=== PATIENT | female | born 1950 | race American Indian/Alaskan Native ===

== ENCOUNTER 2016-12-25 00:37 | Inpatient (IN) | payer MEDICARE, OTHER ==
--- NOTE | 2016-12-25 02:03 | Emergency Department Report ---
HPI - General Chief Complaint: Dyspnea/Respdistress Time Seen by Provider: 12/25/16 01:49 - HPI HPI: Room 7 The patient is a 58-year-old female presenting with a chief complaint of shortness of breath. The patient states this evening she developed shortness of breath. The patient says she used her MDI but it did not help. Patient states she has had a cough productive of green sputum for the past 2 days. Patient denies any history of fever or rhinorrhea. The patient is not on oxygen at home was placed on O2 in the ED states that she now feels "pretty good." Patient denies any other pain except for her chronic pain in her left upper extremity for which she receives disability Location: Lungs, see above Duration: One night Quality: Shortness of breath Severity: Moderate Modifying factors: [see above] Context: [see above] Mode of transportation: [not driving] ED Past Medical Hx - Past Medical History Previous Medical History?: Yes Hx Hypertension: Yes Hx COPD: Yes - Surgical History Additional Surgical History: Partial hysterectomy, herniorrhaphy, hemorrhoidectomy - Family History Family history: no significant - Social History Smoking Status: Current Some Day Smoker (1/2 pack per day) Substance Use Type: None (denies illicit drug use) ED Review of Systems ROS: Stated complaint: DERIK, HTN Other details as noted in HPI Comment: All other systems reviewed and negative Constitutional: denies: chills, fever Eyes: denies: eye pain, eye discharge, vision change ENT: denies: ear pain, throat pain Respiratory: cough, shortness of breath Cardiovascular: denies: chest pain, palpitations Endocrine: no symptoms reported Gastrointestinal: denies: abdominal pain, nausea, diarrhea Genitourinary: denies: urgency, dysuria, discharge Musculoskeletal: denies: back pain, joint swelling, arthralgia Skin: denies: rash, lesions Neurological: denies: headache, weakness, paresthesias Psychiatric: denies: anxiety, depression Hematological/Lymphatic: denies: easy bleeding, easy bruising Physical Exam - Physical Exam Vital Signs: Vital Signs 12/25/16 12/25/16 01:00 01:04 Temperature 99 F Pulse Rate 88 Respiratory 18 20 Rate Blood Pressure 153/82 O2 Sat by Pulse 100 Oximetry Physical Exam: GENERAL: The patient is well-developed well-nourished female lying on stretcher not appear to be in acute distress. [] HEENT: Normocephalic. Atraumatic. Extraocular motions are intact. Patient has moist mucous membranes. NECK: Supple. Trachea midline CHEST/LUNGS: Clear to auscultation. There is no respiratory distress noted. HEART/CARDIOVASCULAR: Regular. There is no tachycardia. There is no gallop rub or murmur. ABDOMEN: Abdomen is soft, nontender. Patient has normal bowel sounds. There is no abdominal distention. SKIN: There is no rash. There is no edema. There is no diaphoresis. NEURO: The patient is awake, alert, and oriented. The patient is cooperative. The patient has normal speech MUSCULOSKELETAL: There is no evidence of acute injury. ED Course Vital Signs 12/25/16 12/25/16 01:00 01:04 Temperature 99 F Pulse Rate 88 Respiratory 18 20 Rate Blood Pressure 153/82 O2 Sat by Pulse 100 Oximetry ED Medical Decision Making - Lab Data Result diagrams: 12/25/16 02:38 12/25/16 02:38 Laboratory Tests 12/25/16 12/25/16 12/25/16 02:38 02:38 02:38 WBC 7.2 RBC 4.40 Hgb 13.1 Hct 39.0 MCV 89 MCH 30 MCHC 34 RDW 14.9 Plt Count 223 Lymph % (Auto) 13.5 [place] % (Auto) 6.0 Eos % (Auto) 0.2 Baso % (Auto) 0.2 Lymph # 1.0 L [place] # 0.4 Eos # 0.0 Baso # 0.0 Seg Neutrophils % 80.1 H Seg Neutrophils # 5.8 PT 12.3 INR 0.92 APTT 27.9 POC ABG pH POC ABG pCO2 POC ABG pO2 POC ABG HCO3 POC ABG Total CO2 POC ABG O2 Sat POC ABG Base Excess FiO2 Sodium 142 Potassium 3.7 Chloride 102.5 Carbon Dioxide 25 Anion Gap 18 BUN 17 Creatinine 0.7 Estimated GFR > 60 BUN/Creatinine Ratio 24.28 Glucose 126 H Calcium 9.0 Total Creatine Kinase 297 H CK-MB (CK-2) 6.4 H CK-MB (CK-2) Rel Index 2.1 Troponin T 0.141 H* NT-Pro-B Natriuret Pep 138.4 12/25/16 02:39 WBC RBC Hgb Hct MCV MCH MCHC RDW Plt Count Lymph % (Auto) [place] % (Auto) Eos % (Auto) Baso % (Auto) Lymph # [place] # Eos # Baso # Seg Neutrophils % Seg Neutrophils # PT INR APTT POC ABG pH 7.376 POC ABG pCO2 43.3 POC ABG pO2 50 L POC ABG HCO3 25.3 POC ABG Total CO2 27 POC ABG O2 Sat 84 POC ABG Base Excess 0 FiO2 21 Sodium Potassium Chloride Carbon Dioxide Anion Gap BUN Creatinine Estimated GFR BUN/Creatinine Ratio Glucose Calcium Total Creatine Kinase CK-MB (CK-2) CK-MB (CK-2) Rel Index Troponin T NT-Pro-B Natriuret Pep - EKG Data -: EKG Interpreted by Me EKG shows normal: sinus rhythm Rate: normal - EKG Data When compared to previous EKG there are: previous EKG unavailable Interpretation: nonspecific ST-T wave maria c - Radiology Data Radiology results: image reviewed (chest x-ray) interpreted by me: Chest x-ray-no focal infiltrates, no pneumothorax - Differential Diagnosis COPD exacerbation, pneumonia, acute bronchitis, CHF Critical care attestation.: If time is entered above; I have spent that time in minutes in the direct care of this critically ill patient, excluding procedure time. ED Disposition Clinical Impression: Shortness of breath, Hypoxia, Elevated troponin Disposition: DC-09 OP ADMIT IP TO THIS HOSP Is pt being admited?: Yes Does the pt Need Aspirin: Yes Condition: Fair Referrals: PRIMARY CARE, [Primary Care Provider] - 3-5 Days Time of Disposition: 04:02 (hospitalist paged)
[2016-12-25 02:49] LABS: ISTAT Base Excess 0; ISTAT DEVICE 0; ISTAT HCO3 25.3; ISTAT PCO2 43.3 (35-45); ISTAT PH 7.376 (7.35-7.45); ISTAT PO2 50 (80-105); ISTAT SO2 84; ISTAT TCO2 27
[2016-12-25] MEDS ORDERED: MOTRIN PO ONE (03:02)
[2016-12-25 03:20] LABS: Creatine Kinase MB 6.4 ng/mL (0.0-4.0)
[2016-12-25 03:21] LABS: Anion Gap 18 mmol/L; BUN/Creatinine Ratio 24.28; Blood Urea Nitrogen 17 mg/dL (7-17); Carbon Dioxide 25 mmol/L (22-30); Chloride 102.5 mmol/L (98-107); Creatine Kinase 297 units/L (30-135); Glucose 126 mg/dL (65-100); Potassium 3.7 mmol/L (3.6-5.0); Sodium 142 mmol/L (137-145)
[2016-12-25 03:26] LABS: Basophils % (Auto) 0.2 % (0.0-1.8); Eosinophils % (Auto) 0.2 % (0.0-4.3); Hemoglobin 13.1 gm/dl (10.1-14.3); Mean Corpuscular HGB Conc 34 % (30-34); Mean Corpuscular Hemoglobin 30 pg (28-32); Mean Corpuscular Volume 89 fl (79-97); Platelet Count 223 K/mm3 (140-440); Red Cell Distribution Width 14.9 % (13.2-15.2); White Blood Count 7.2 K/mm3 (4.5-11.0)
[2016-12-25 03:33] LABS: INR 0.92 (0.87-1.13)
[2016-12-25 03:34] LABS: Partial Thromboplastin Time 27.9 Sec. (24.2-36.6)
[2016-12-25] MEDS ORDERED: ASPIRIN PO ONE (04:00)
[2016-12-25 04:12] LABS: Cholesterol 168 mg/dL (50-199); HDL Cholesterol 65 mg/dL (40-59); LDL Cholesterol,Direct 82 mg/dL (50-130); Triglycerides 106 mg/dL (2-149)
[2016-12-25 07:17] LABS: Creatine Kinase MB 7.5 ng/mL (0.0-4.0)
--- NOTE | 2016-12-25 07:37 | XRay Report ---
AP CHEST: HISTORY: Shortness of breath No comparison. The lungs are hyperinflated suggesting moderate emphysematous changes. No infiltrate, pleural effusion or pneumothorax. Heart and mediastinal structures are within normal limits. Normal bony thorax. IMPRESSION: Emphysematous changes. No acute process.
--- NOTE | 2016-12-25 08:36 | Admit Criteria Form ---
Admission Criteria Documentation: COPD Clinical Indications for Admission to Inpatient Care ([place]/ check or initial the applicable condition/criteria) Admission is indicated for ANY ONE of the following (1)(2)(3): [ ]I. Acute exacerbation by high-risk comorbidity(e.g., pneumonia, dysrhythmia, heart failure, pleural effusion, pneumothorax) or severe underlying COPD (eg, baseline FEV1 less than 50% predicted) [X ]II. Inpatient admission required[A] rather than observation care (see Chronic Obstructive Pulmonary Disease: Observation Care) because of ANY ONE of the following: [X ]a) New or pre-existing signs or symptoms of COPD (eg, dyspnea or Tachypnea at rest or with minimal activity) that persist despite outpatient and observation care treatment [ ]b) New-onset hypoxemia (room air SaO2 less than 90%, PO2 less than 60 mm Hg (8.0 kPa)) that persists despite outpatient and observation care treatment [ ]c) Worsening of pre-existing hypoxemia (eg, new or increased requirement for supplemental oxygen to maintain oxygenation at baseline level) that persists despite outpatient and observation care treatment, with oxygen treatment needs performable only in acute inpatient setting [ ]d) Hypercarbia (PCO2 greater than 40 mm Hg (5.3 kPa))-induced respiratory acidosis (pH less than 7.35) that persists despite outpatient and observation care treatment [ ]e) Supplemental oxygen or respiratory treatments for over 24 hours that are performable only in acute inpatient setting [ ]f) Chest tube placement with active evacuation (e.g., suction, drainage) (6) [ ]g) Other condition, treatment or monitoring requiring inpatient admission [ ]III. Planned invasive surgical or diagnostic procedures requiring acute- care hospitalization [ ]IV. Acute respiratory failure (e.g., uncompensated hypercarbia, severe hypoxemia) [ ]V. Severe comorbid condition (e.g., severe steroid myopathy, acute vertebral fracture) that has acutely worsened pulmonary function [ ]. Altered mental status that is severe or persistent Extended stay beyond goal length of stay may be needed for (29)(30)(31)(32)(33) : [ ]a ) Respiratory Failure. [ ]b) Severe or persisting hypoxemia or hypercarbia [ ]c) Severe or persistent dyspnea [ ]d) Clinically significant Comorbidities (e.g. chronic heart failure, atrial fibrillation with rapid response, pneumonia)(36) [ ]e) Malnutrition (33) The original [facility] content created by [facility] has been revised. The portions of the content which have been revised are identified through the use of italic text or in bold, and [facility] has neither reviewed nor approved the modified material. All other unmodified content is copyright [facility]. Please see references footnoted in the original [facility] edition 2017 Admission Criteria Met: Yes
--- NOTE | 2016-12-25 09:03 | History and Physical Report ---
History of Present Illness Date of examination: 12/25/16 Date of admission: 12/25/16 06:40 Chief complaint: Shortness of breath History of present illness: Patient is a 66-year-old black female with past medical history of hypertension and COPD who presents to the emergency department with complaining of shortness of breath.Until yesterday patient was at her normal baseline state of health. She developed shortness of breath yesterday. Now she has had progressive worsening of her dyspnea on exertion (SHEA) to where she cannot walk across a room or talk while sitting up without becoming short of breath.Patient says she used her MDI but it did not help. Patient reported cough productive with green sputum for the past 2 days. Patient denies He has had no fevers, chills, or night sweats. No hx of recurrent pneumonia. He has no sick contact, TB exposure (that he knows of ie incarcerated, homeless). He also has no pets, has not been around any farm animals, and has not traveled recently or been around those who have. Past History Past Medical History: COPD, hypertension Past Surgical History: No surgical history Social history: smoking Family history: CAD, hypertension Medications and Allergies Allergies Allergy/AdvReac Type Severity Reaction Status Date / Time No Known Allergies Allergy Unverified 12/25/16 05:14 Home Medications Medication Instructions Recorded Confirmed Last Taken Type Amlodipine Besylate [Amlodipine 5 mg PO DAILY 12/25/16 12/25/16 12/24/16 History Besylate] Citalopram Hydrobromide 40 mg PO DAILY 12/25/16 12/25/16 12/24/16 History [Citalopram HBr] Ipratropium/Albuterol Sulfate 2 puff IH QID 12/25/16 12/25/16 12/24/16 History [Combivent Respimat] Lovastatin (Nf) [Mevacor (Nf)] 20 mg PO QHS 12/25/16 12/25/16 12/24/16 History Mometasone/Formoterol [Dulera 200 2 puff IH BID 12/25/16 12/25/16 Unknown History Mcg/5 Mcg Inhaler] Tiotropium [Spiriva] 2 puff IH QDAY PRN 09/13/17 09/13/17 09/12/17 History Active Meds: Active Medications Acetaminophen (Tylenol) 650 mg PO Q4H PRN PRN Reason: Pain MILD(1-3)/Fever >100.5/UMANA Albuterol (Proventil) 2.5 mg IH Q4HRT PRN PRN Reason: Shortness Of Breath Albuterol/Ipratropium (Duoneb *Not For Prn Use*) 1 ampul IH Q6HRT FERMIN Bisacodyl (Dulcolax) 10 mg [place] QDAY PRN PRN Reason: Constipation unrelieved by MOM Methylprednisolone Sodium Succinate (Solu-Medrol) 40 mg IV BID FERMIN Morphine Sulfate (Morphine) 2 mg IV Q4H PRN PRN Reason: Pain, Moderate (4-6) Ondansetron HCl (Zofran) 4 mg IM Q4H PRN PRN Reason: Nausea And Vomiting Review of Systems Constitutional: no weight loss, no weight gain, no fever, no chills, no sweats Ears, nose, mouth and throat: no ear pain, no ear discharge, no tinnitis, no decreased hearing, no nose pain Breasts: no normal, no change in shape, no swelling Cardiovascular: no orthopnea, no palpitations, no rapid/irregular heart beat, no edema, no syncope Respiratory: no cough with sputum, no excessive sputum, no hemoptysis, no shortness of breath Gastrointestinal: no vomiting, no diarrhea, no constipation, no change in bowel habits Genitourinary Female: no dysmenorrhea, no pelvic pain, no flank pain, no menorrhagia Menstruation: no currently menstrual, no premenarcheal, no post hysterectomy, no ammenorrhea Rectal: no pain, no incontinence, no bleeding Musculoskeletal: no shooting arm pain, no arm numbness/tingling, no low back pain, no shooting leg pain Integumentary: no rash, no pruritis, no redness, no sores, no wounds Neurological: no head injury, no transient paralysis, no paralysis, no parathesias Psychiatric: no change in sleep habits, no hypersomnia, no change in appetite, no suicidal ideation Endocrine: no heat intolerance, no polyphagia, no excessive thirst, no polydipsia Hematologic/Lymphatic: no easy bruising, no easy bleeding Allergic/Immunologic: no urticaria, no wheezing Exam - Constitutional Vitals: Temp Pulse Resp BP Pulse Ox 97.8 F 76 22 131/72 99 12/25/16 05:53 12/25/16 08:01 12/25/16 08:01 12/25/16 08:01 12/25/16 08:30 General appearance: Present: mild distress - EENT Eyes: Present: PERRL ENT: hearing intact - Neck Neck: Present: supple - Respiratory Respiratory effort: normal Respiratory: bilateral: wheezing - Cardiovascular Heart rate: 72 Rhythm: regular Heart Sounds: Present: S1 & S2 - Extremities Extremities: no ischemia Peripheral Pulses: within normal limits - Abdominal General gastrointestinal: Present: soft, non-tender Female genitourinary: Present: deferred - Rectal Rectal Exam: deferred - Integumentary Integumentary: Present: clear, warm, dry - Musculoskeletal Musculoskeletal: strength equal bilaterally - Psychiatric Psychiatric: appropriate mood/affect - Neurologic Neurologic: CNII-XII intact - Allied Health Allied health notes reviewed: nursing Results - Labs CBC & Chem 7: 12/25/16 02:38 12/25/16 02:38 Labs: Laboratory Last Values WBC 7.2 K/mm3 (4.5-11.0) 12/25/16 02:38 RBC 4.40 M/mm3 (3.65-5.03) 12/25/16 02:38 Hgb 13.1 gm/dl (10.1-14.3) 12/25/16 02:38 Hct 39.0 % (30.3-42.9) 12/25/16 02:38 MCV 89 fl (79-97) 12/25/16 02:38 MCH 30 pg (28-32) 12/25/16 02:38 MCHC 34 % (30-34) 12/25/16 02:38 RDW 14.9 % (13.2-15.2) 12/25/16 02:38 Plt Count 223 K/mm3 (140-440) 12/25/16 02:38 Lymph % (Auto) 13.5 % (13.4-35.0) 12/25/16 02:38 [place] % (Auto) 6.0 % (0.0-7.3) 12/25/16 02:38 Eos % (Auto) 0.2 % (0.0-4.3) 12/25/16 02:38 Baso % (Auto) 0.2 % (0.0-1.8) 12/25/16 02:38 Lymph # 1.0 K/mm3 (1.2-5.4) L 12/25/16 02:38 [place] # 0.4 K/mm3 (0.0-0.8) 12/25/16 02:38 Eos # 0.0 K/mm3 (0.0-0.4) 12/25/16 02:38 Baso # 0.0 K/mm3 (0.0-0.1) 12/25/16 02:38 Seg Neutrophils % 80.1 % (40.0-70.0) H 12/25/16 02:38 Seg Neutrophils # 5.8 K/mm3 (1.8-7.7) 12/25/16 02:38 PT 12.3 Sec. (12.2-14.9) 12/25/16 02:38 INR 0.92 (0.87-1.13) 12/25/16 02:38 APTT 27.9 Sec. (24.2-36.6) 12/25/16 02:38 POC ABG pH 7.376 (7.35-7.45) 12/25/16 02:39 POC ABG pCO2 43.3 (35-45) 12/25/16 02:39 POC ABG pO2 50 (80-105) L 12/25/16 02:39 POC ABG HCO3 25.3 12/25/16 02:39 POC ABG Total CO2 27 12/25/16 02:39 POC ABG O2 Sat 84 12/25/16 02:39 POC ABG Base Excess 0 12/25/16 02:39 FiO2 21 % 12/25/16 02:39 Sodium 142 mmol/L (137-145) 12/25/16 02:38 Potassium 3.7 mmol/L (3.6-5.0) 12/25/16 02:38 Chloride 102.5 mmol/L (98-107) 12/25/16 02:38 Carbon Dioxide 25 mmol/L (22-30) 12/25/16 02:38 Anion Gap 18 mmol/L 12/25/16 02:38 BUN 17 mg/dL (7-17) 12/25/16 02:38 Creatinine 0.7 mg/dL (0.7-1.2) 12/25/16 02:38 Estimated GFR > 60 ml/min 12/25/16 02:38 BUN/Creatinine Ratio 24.28 % 12/25/16 02:38 Glucose 126 mg/dL (65-100) H 12/25/16 02:38 Calcium 9.0 mg/dL (8.4-10.2) 12/25/16 02:38 Total Creatine Kinase 306 units/L (30-135) H 12/25/16 06:49 CK-MB (CK-2) 7.5 ng/mL (0.0-4.0) H 12/25/16 06:49 CK-MB (CK-2) Rel Index 2.4 (0-4) 12/25/16 06:49 Troponin T 0.088 ng/mL (0.00-0.029) H D 12/25/16 06:49 NT-Pro-B Natriuret Pep 138.4 pg/mL (0-900) 12/25/16 02:38 Triglycerides 106 mg/dL (2-149) 12/25/16 02:38 Cholesterol 168 mg/dL (50-199) 12/25/16 02:38 LDL Cholesterol Direct 82 mg/dL (50-130) 12/25/16 02:38 HDL Cholesterol 65 mg/dL (40-59) H 12/25/16 02:38 Cholesterol/HDL Ratio 2.58 % 12/25/16 02:38 - Imaging and Cardiology Chest x-ray: image reviewed (Emphysematus.No acute process) Assessment and Plan Assessment and plan: Patient is a 66-year-old black female with past medical history of hypertension and COPD who presents to the emergency department with complaining of shortness of breath.Until yesterday patient was at her normal baseline state of health. She developed shortness of breath yesterday. COPD exacerbation Started on Duoneb every 6 hours Started IV steroid Solumedrol every 6 Initiated on empiric treatment of IV azithromycin. Oxygen as necessary Hypertension We will resume home antihypertensive medications Closely monitor blood pressure Elevated troponin We will admit to telemetry floor. EKG normal sinus rate [address] elevation or T-wave inversion. We will get another EKG ordered for a changes that have taken since the first one obtained Elevated troponinX2 Start on aspirin Nitroglycerin when necessary Morphine ordered for pain Stress test ordered. Cardiology consult Tobacco use Smoking cessation Counseling done. Patient strongly advised to quit. DVT prophylaxis Lovenox Advance Directives: Yes VTE prophylaxis?: Chemical Contraindication Mechanical VTE Prophylaxis: Treatment Not Indicated Plan of care discussed with patient/family: Yes
[2016-12-25] MEDS ORDERED: ZOFRAN IV PRN (09:30)
[2016-12-25] MEDS ORDERED: MORPHINE IV PRN (09:30)
[2016-12-25] MEDS ORDERED: TYLENOL PO PRN (10:00)
[2016-12-25] MEDS ORDERED: DULCOLAX PR PRN (10:00)
[2016-12-25] MEDS: DUONEB *Not for PRN Use IH SCH ×3 (10:15→21:41)
[2016-12-25] MEDS ORDERED: NITROSTAT SL PRN (12:37)
[2016-12-25] MEDS ORDERED: LEVAQUIN 500MG/100ML 500 MG/100 ML BAG IV ONE (14:00)
[2016-12-25 14:47] LABS: Creatine Kinase MB 9.1 ng/mL (0.0-4.0)
[2016-12-25] MEDS: HABITROL TD SCH (20:04)
[2016-12-26] MEDS: DUONEB *Not for PRN Use IH SCH ×4 (02:21→19:41)
[2016-12-26 06:08] LABS: Basophils % (Auto) 0.2 % (0.0-1.8); Eosinophils % (Auto) 0.1 % (0.0-4.3); Hematocrit 40.5 % (30.3-42.9); Hemoglobin 13.8 gm/dl (10.1-14.3); Mean Corpuscular HGB Conc 34 % (30-34); Mean Corpuscular Hemoglobin 30 pg (28-32); Mean Corpuscular Volume 88 fl (79-97); Platelet Count 227 K/mm3 (140-440); Red Blood Count 4.62 M/mm3 (3.65-5.03); Red Cell Distribution Width 14.8 % (13.2-15.2)
[2016-12-26 06:29] LABS: Anion Gap 18 mmol/L; BUN/Creatinine Ratio 17.14; Blood Urea Nitrogen 12 mg/dL (7-17); Calcium 9.4 mg/dL (8.4-10.2); Carbon Dioxide 23 mmol/L (22-30); Chloride 104.3 mmol/L (98-107); Glucose 123 mg/dL (65-100); Potassium 3.7 mmol/L (3.6-5.0); Sodium 142 mmol/L (137-145)
[2016-12-26] MEDS ORDERED: LEVAQUIN 500MG/100ML 500 MG/100 ML BAG IV SCH (10:00)
--- NOTE | 2016-12-26 10:06 | Progress Note ---
Assessment and Plan Assessment and plan: Patient is a 66-year-old black female with past medical history of hypertension and COPD who presents to the emergency department with complaining of shortness of breath.Until yesterday patient was at her normal baseline state of health. She developed shortness of breath yesterday. COPD exacerbation Continue steroids, aggressive nebulizer treatments and empiric antibiotics, continue oxygen supplementation Acute hypoxic respiratory failure -Continue supplemental oxygen, continue to wean as tolerated Hypertension We will resume home antihypertensive medications Closely monitor blood pressure Elevated troponin, appears to be a type II non-STEMI -Troponins have trended down, cardiology consult pending, patient will need ischemic stratification versus stress test versus cardiac cath Tobacco use -continue nicotine patch -Smoking cessation Counseling done. Patient strongly advised to quit. DVT prophylaxis Lovenox History Interval history: Shortness of breath is improved, wheezing is improved. She has occasional chest pain but it is resolved at this time Hospitalist Physical - Physical exam Narrative exam: General.: Appears well, no distress, nontoxic HEENT: Moist mucous membranes, extraocular muscles intact, no lymphadenopathy Neck: supple Cardiac: S1-S2 heard Lungs: Decreased air entry Abdomen: soft , nontender, nondistended, bowel sounds positive Extremities: no edema clubbing or cyanosis Skin: no rash or lesions Neurologic: no gross focal deficits Psych: appropriate behavior, appropriate mood, corporative, judgment intact - Constitutional Vitals: Temp Pulse Resp BP Pulse Ox 98.2 F 81 18 165/83 100 12/26/16 05:23 12/26/16 08:00 12/26/16 08:00 12/26/16 05:23 12/26/16 05:23 General appearance: Present: mild distress Results - Labs CBC & Chem 7: 12/26/16 05:42 12/26/16 05:42 Labs: Laboratory Last Values WBC 4.0 K/mm3 (4.5-11.0) L 12/26/16 05:42 RBC 4.62 M/mm3 (3.65-5.03) 12/26/16 05:42 Hgb 13.8 gm/dl (10.1-14.3) 12/26/16 05:42 Hct 40.5 % (30.3-42.9) 12/26/16 05:42 MCV 88 fl (79-97) 12/26/16 05:42 MCH 30 pg (28-32) 12/26/16 05:42 MCHC 34 % (30-34) 12/26/16 05:42 RDW 14.8 % (13.2-15.2) 12/26/16 05:42 Plt Count 227 K/mm3 (140-440) 12/26/16 05:42 Lymph % (Auto) 18.6 % (13.4-35.0) 12/26/16 05:42 [place] % (Auto) 3.4 % (0.0-7.3) 12/26/16 05:42 Eos % (Auto) 0.1 % (0.0-4.3) 12/26/16 05:42 Baso % (Auto) 0.2 % (0.0-1.8) 12/26/16 05:42 Lymph # 0.7 K/mm3 (1.2-5.4) L 12/26/16 05:42 [place] # 0.1 K/mm3 (0.0-0.8) 12/26/16 05:42 Eos # 0.0 K/mm3 (0.0-0.4) 12/26/16 05:42 Baso # 0.0 K/mm3 (0.0-0.1) 12/26/16 05:42 Seg Neutrophils % 77.7 % (40.0-70.0) H 12/26/16 05:42 Seg Neutrophils # 3.1 K/mm3 (1.8-7.7) 12/26/16 05:42 PT 12.3 Sec. (12.2-14.9) 12/25/16 02:38 INR 0.92 (0.87-1.13) 12/25/16 02:38 APTT 27.9 Sec. (24.2-36.6) 12/25/16 02:38 POC ABG pH 7.376 (7.35-7.45) 12/25/16 02:39 POC ABG pCO2 43.3 (35-45) 12/25/16 02:39 POC ABG pO2 50 (80-105) L 12/25/16 02:39 POC ABG HCO3 25.3 12/25/16 02:39 POC ABG Total CO2 27 12/25/16 02:39 POC ABG O2 Sat 84 12/25/16 02:39 POC ABG Base Excess 0 12/25/16 02:39 FiO2 21 % 12/25/16 02:39 Sodium 142 mmol/L (137-145) 12/26/16 05:42 Potassium 3.7 mmol/L (3.6-5.0) 12/26/16 05:42 Chloride 104.3 mmol/L (98-107) 12/26/16 05:42 Carbon Dioxide 23 mmol/L (22-30) 12/26/16 05:42 Anion Gap 18 mmol/L 12/26/16 05:42 BUN 12 mg/dL (7-17) 12/26/16 05:42 Creatinine 0.7 mg/dL (0.7-1.2) 12/26/16 05:42 Estimated GFR > 60 ml/min 12/26/16 05:42 BUN/Creatinine Ratio 17.14 % 12/26/16 05:42 Glucose 123 mg/dL (65-100) H 12/26/16 05:42 Calcium 9.4 mg/dL (8.4-10.2) 12/26/16 05:42 Total Creatine Kinase 340 units/L (30-135) H 12/25/16 13:19 CK-MB (CK-2) 9.1 ng/mL (0.0-4.0) H 12/25/16 13:19 CK-MB (CK-2) Rel Index 2.6 (0-4) 12/25/16 13:19 Troponin T 0.021 ng/mL (0.00-0.029) 12/25/16 13:19 NT-Pro-B Natriuret Pep 138.4 pg/mL (0-900) 12/25/16 02:38 Triglycerides 106 mg/dL (2-149) 12/25/16 02:38 Cholesterol 168 mg/dL (50-199) 12/25/16 02:38 LDL Cholesterol Direct 82 mg/dL (50-130) 12/25/16 02:38 HDL Cholesterol 65 mg/dL (40-59) H 12/25/16 02:38 Cholesterol/HDL Ratio 2.58 % 12/25/16 02:38
[2016-12-26] MEDS: HABITROL TD SCH (10:36)
[2016-12-26] MEDS: ASPIRIN PO SCH (10:37)
[2016-12-26] MEDS: LEVAQUIN 250MG/50ML 250 MG/50 ML BAG IV SCH (10:38)
[2016-12-26] MEDS: PROVENTIL IH PRN ×2 (11:44→21:58)
[2016-12-26] MEDS ORDERED: NACL 0.9% 500 ML 500 ML IV SCH (12:00)
--- NOTE | 2016-12-26 13:00 | Consultation ---
History of Present Illness Consult date: 12/26/16 Consult reason: elevated troponin History of present illness: This is a 66yr old woman with a history of Hypertension, COPD and continued tobacco abuse who presented to this hospital with complaints of shortness of breath. Patient denies chest pain. Her initial ECG shows a normal sinus rhythm but her cardiac enzymes were elevated. The CK/MB was 9.1 with a relative index of 2.6. Cardiac consultation was requested. Past History Past Medical History: COPD, hypertension Social history: smoking Family history: CAD, hypertension Medications and Allergies Allergies Allergy/AdvReac Type Severity Reaction Status Date / Time No Known Allergies Allergy Unverified 12/25/16 05:14 Home Medications Medication Instructions Recorded Confirmed Last Taken Type Amlodipine Besylate [Amlodipine 5 mg PO DAILY 12/25/16 12/25/16 12/24/16 History Besylate] Citalopram Hydrobromide 40 mg PO DAILY 12/25/16 12/25/16 12/24/16 History [Citalopram HBr] Ipratropium/Albuterol Sulfate 2 puff IH QID 12/25/16 12/25/16 12/24/16 History [Combivent Respimat] Lovastatin (Nf) [Mevacor (Nf)] 20 mg PO QHS 12/25/16 12/25/16 12/24/16 History Mometasone/Formoterol [Dulera 200 2 puff IH BID 12/25/16 12/25/16 Unknown History Mcg/5 Mcg Inhaler] Tiotropium [Spiriva] 2 puff IH QDAY PRN 12/25/16 12/25/16 12/24/16 History Active Meds: Active Medications Acetaminophen (Tylenol) 650 mg PO Q4H PRN PRN Reason: Pain MILD(1-3)/Fever >100.5/UMANA Last Admin: 12/25/16 22:14 Dose: 650 mg Albuterol (Proventil) 2.5 mg IH Q4HRT PRN PRN Reason: Shortness Of Breath Last Admin: 12/26/16 11:44 Dose: 2.5 mg Albuterol/Ipratropium (Duoneb *Not For Prn Use*) 1 ampul IH Q6HRT [facility] Last Admin: 12/26/16 07:34 Dose: 1 ampul Aspirin (Aspirin) 325 mg PO DAILY [facility] Last Admin: 12/26/16 10:37 Dose: 325 mg Bisacodyl (Dulcolax) 10 mg [place] QDAY PRN PRN Reason: Constipation unrelieved by MOM Levofloxacin/Dextrose (Levaquin 250mg/50ml) 250 mg in 50 mls @ 50 mls/hr IV Q24HR [facility] Last Admin: 12/26/16 10:38 Dose: 50 mls/hr Sodium Chloride (Nacl 0.9% 500 Ml) 500 mls @ 50 mls/hr IV DIRECT [facility] Stop: 12/26/16 21:59 Methylprednisolone Sodium Succinate (Solu-Medrol) 40 mg IV BID [facility] Last Admin: 12/26/16 10:37 Dose: 40 mg Morphine Sulfate (Morphine) 2 mg IV Q4H PRN PRN Reason: Pain, Moderate (4-6) Nicotine (Habitrol) 7 mg TD QDAY [facility] Last Admin: 12/26/16 10:36 Dose: 7 mg Nitroglycerin (Nitrostat) 0.4 mg SL .Q5MIN PRN PRN Reason: Chest Pain Ondansetron HCl (Zofran) 4 mg IV Q4H PRN PRN Reason: Nausea And Vomiting Physical Examination Vital Signs Pulse Resp BP Pulse Ox 122 H 23 151/82 92 12/24/16 20:49 12/24/16 20:49 12/24/16 20:49 12/24/16 20:49 General appearance: no acute distress HEENT: Positive: PERRL Neck: Positive: trachea midline Cardiac: Positive: Reg Rate and Rhythm Lungs: Positive: Decreased Breath Sounds Neuro: Positive: Grossly Intact Results 12/26/16 05:42 12/26/16 05:42 Cardiac Enzymes 12/25/16 Range/Units 13:19 CK-MB (CK-2) 9.1 H (0.0-4.0) ng/mL CBC 12/26/16 Range/Units 05:42 WBC 4.0 L (4.5-11.0) K/mm3 RBC 4.62 (3.65-5.03) M/mm3 Hgb 13.8 (10.1-14.3) gm/dl Hct 40.5 (30.3-42.9) % Plt Count 227 (140-440) K/mm3 Lymph # 0.7 L (1.2-5.4) K/mm3 [place] # 0.1 (0.0-0.8) K/mm3 Eos # 0.0 (0.0-0.4) K/mm3 Baso # 0.0 (0.0-0.1) K/mm3 Comprehensive Metabolic Panel 12/26/16 Range/Units 05:42 Sodium 142 (137-145) mmol/L Potassium 3.7 (3.6-5.0) mmol/L Chloride 104.3 (98-107) mmol/L Carbon Dioxide 23 (22-30) mmol/L BUN 12 (7-17) mg/dL Creatinine 0.7 (0.7-1.2) mg/dL Glucose 123 H (65-100) mg/dL Calcium 9.4 (8.4-10.2) mg/dL Assessment and Plan Shortness of breath Abnormal cardiac enzymes Hx of COPD Hypertension Tobacco abuse Due to multiple risk factors and abnormal cardiac enzymes we will recommend a cardiac catheterization, today, for further cardiac evaluation. Advised smoking cessation.
--- NOTE | 2016-12-26 14:17 | Consultation ---
History of Present Illness Consult date: 12/26/16 Requesting physician: WIN HOPKINS Reason for consult: COPD Past History Past Medical History: COPD, hypertension Past Surgical History: No surgical history Social history: smoking Family history: CAD, hypertension Medications and Allergies Allergies Allergy/AdvReac Type Severity Reaction Status Date / Time No Known Allergies Allergy Unverified 12/25/16 05:14 Home Medications Medication Instructions Recorded Confirmed Last Taken Type Amlodipine Besylate [Amlodipine 5 mg PO DAILY 12/25/16 12/25/16 12/24/16 History Besylate] Citalopram Hydrobromide 40 mg PO DAILY 12/25/16 12/25/16 12/24/16 History [Citalopram HBr] Ipratropium/Albuterol Sulfate 2 puff IH QID 12/25/16 12/25/16 12/24/16 History [Combivent Respimat] Lovastatin (Nf) [Mevacor (Nf)] 20 mg PO QHS 12/25/16 12/25/16 12/24/16 History Mometasone/Formoterol [Dulera 200 2 puff IH BID 12/25/16 12/25/16 Unknown History Mcg/5 Mcg Inhaler] Tiotropium [Spiriva] 2 puff IH QDAY PRN 12/25/16 12/25/16 12/24/16 History Active Meds: Active Medications Acetaminophen (Tylenol) 650 mg PO Q4H PRN PRN Reason: Pain MILD(1-3)/Fever >100.5/UMANA Last Admin: 12/25/16 22:14 Dose: 650 mg Albuterol (Proventil) 2.5 mg IH Q4HRT PRN PRN Reason: Shortness Of Breath Last Admin: 12/26/16 11:44 Dose: 2.5 mg Albuterol/Ipratropium (Duoneb *Not For Prn Use*) 1 ampul IH Q6HRT [facility] Last Admin: 12/26/16 13:53 Dose: Not Given Aspirin (Aspirin) 325 mg PO DAILY [facility] Last Admin: 12/26/16 10:37 Dose: 325 mg Bisacodyl (Dulcolax) 10 mg [place] QDAY PRN PRN Reason: Constipation unrelieved by MOM Levofloxacin/Dextrose (Levaquin 250mg/50ml) 250 mg in 50 mls @ 50 mls/hr IV Q24HR [facility] Last Admin: 12/26/16 10:38 Dose: 50 mls/hr Sodium Chloride (Nacl 0.9% 500 Ml) 500 mls @ 50 mls/hr IV DIRECT [facility] Stop: 12/26/16 21:59 Methylprednisolone Sodium Succinate (Solu-Medrol) 40 mg IV BID [facility] Last Admin: 12/26/16 10:37 Dose: 40 mg Morphine Sulfate (Morphine) 2 mg IV Q4H PRN PRN Reason: Pain, Moderate (4-6) Nicotine (Habitrol) 7 mg TD QDAY [facility] Last Admin: 12/26/16 10:36 Dose: 7 mg Nitroglycerin (Nitrostat) 0.4 mg SL .Q5MIN PRN PRN Reason: Chest Pain Ondansetron HCl (Zofran) 4 mg IV Q4H PRN PRN Reason: Nausea And Vomiting Physical Examination Vital signs: Vital Signs Pulse Resp BP Pulse Ox 122 H 23 151/82 92 12/24/16 20:49 12/24/16 20:49 12/24/16 20:49 12/24/16 20:49 Results - Laboratory Findings CBC and BMP: 12/26/16 05:42 12/26/16 05:42 ABG POC ABG pH 7.376 (7.35-7.45) 12/25/16 02:39 POC ABG pCO2 43.3 (35-45) 12/25/16 02:39 POC ABG pO2 50 (80-105) L 12/25/16 02:39 POC ABG HCO3 25.3 12/25/16 02:39 POC ABG Total CO2 27 12/25/16 02:39 POC ABG O2 Sat 84 12/25/16 02:39 PT/INR, D-dimer PT 12.3 Sec. (12.2-14.9) 12/25/16 02:38 INR 0.92 (0.87-1.13) 12/25/16 02:38 Abnormal lab findings: Abnormal Labs 12/25/16 12/25/16 12/26/16 06:49 13:19 05:42 WBC 4.0 L Lymph # 0.7 L Seg Neutrophils % 77.7 H Glucose Total Creatine Kinase 306 H 340 H CK-MB (CK-2) 7.5 H 9.1 H Troponin T 0.088 H D 12/26/16 05:42 WBC Lymph # Seg Neutrophils % Glucose 123 H Total Creatine Kinase CK-MB (CK-2) Troponin T
[2016-12-26] MEDS ORDERED: SUBLIMAZE ONE (14:23)
[2016-12-26] MEDS ORDERED: HEPARIN/NS 5000 UNIT/500ML(CATH LAB) 1,000 ML IR ONE (14:23)
[2016-12-26] MEDS ORDERED: VERSED ONE (14:23)
[2016-12-26] MEDS ORDERED: NACL 0.9% 500 ML 500 ML ONE (14:24)
[2016-12-26] MEDS ORDERED: XYLOCAINE 2% INFILTRATI ONE (14:24)
[2016-12-26] MEDS ORDERED: HEPARIN/NS 5000 UNIT/500ML(CATH LAB) 500 ML IR ONE (14:25)
[2016-12-26] MEDS ORDERED: HEPARIN 10,000 UNITS/10 ML ONE (14:45)
[2016-12-26] MEDS ORDERED: SPIRIVA IH SCH (22:00)
[2016-12-26] MEDS ORDERED: ZOCOR PO SCH (22:00)
[2016-12-26] MEDS: NORVASC PO SCH (22:12)
[2016-12-26] MEDS: ZOCOR PO SCH (22:12)
[2016-12-27] MEDS: DUONEB *Not for PRN Use IH SCH ×4 (01:37→19:33)
[2016-12-27] MEDS: LEVAQUIN 250MG/50ML 250 MG/50 ML BAG IV SCH (10:29)
[2016-12-27] MEDS: ASPIRIN PO SCH (10:30)
[2016-12-27] MEDS: HABITROL TD SCH (10:30)
[2016-12-27] MEDS: NORVASC PO SCH (10:31)
--- NOTE | 2016-12-27 10:42 | Discharge Summary ---
Providers - Providers Date of Admission: 12/25/16 06:40 Attending physician: JAMAL DELGADO MD 12/25/16 11:56 Consult to Physician [CONS] Routine Consulting Provider: WIN HOPKINS Reason For Exam: Elevated Trop. Place consult to:: yes Notified:: Merlene Miramontes RN Phone number called:: yes Was contact made?: Yes If yes, spoke with:: Merlene Miramontes RN Time called:: 13:26 12/26/16 09:32 Consult to Physician [CONS] Routine Consulting Provider: HARPER GONSALES Reason For Exam: copd, acute hypoxia Place consult to:: pulm Notified:: office Phone number called:: [phone] Was contact made?: Yes If yes, spoke with:: esteban Time called:: 11:17 Primary care physician: MEAL COOKER Hospitalization Condition: Fair Hospital course: Patient is a 66-year-old black female with past medical history of hypertension and COPD who presents to the emergency department with complaining of shortness of breath.Until yesterday patient was at her normal baseline state of health. She developed shortness of breath yesterday. COPD exacerbation Started on Duoneb every 6 hours Started IV steroid Solumedrol every 6 Initiated on empiric treatment of IV azithromycin. Oxygen as necessary Acute hypoxic respiratory failure - Hypertension We will resume home antihypertensive medications Closely monitor blood pressure Elevated troponin We will admit to telemetry floor. EKG normal sinus rate [address] elevation or T-wave inversion. We will get another EKG ordered for a changes that have taken since the first one obtained Elevated troponinX2 Start on aspirin Nitroglycerin when necessary Morphine ordered for pain Stress test ordered. Cardiology consult Tobacco use Smoking cessation Counseling done. Patient strongly advised to quit. DVT prophylaxis Lovenox Disposition: DC-01 TO HOME OR SELFCARE Time spent for discharge: 33 minutes Core Measure Documentation - Palliative Care Palliative Care/ Comfort Measures: Not Applicable - Core Measures Any of the following diagnoses?: none Exam - Constitutional Vitals: Temp Pulse Resp BP Pulse Ox 98.2 F 70 18 159/90 94 12/27/16 04:00 12/27/16 06:41 12/27/16 04:00 12/27/16 04:00 12/27/16 04:00 General appearance: Present: no acute distress, well-nourished - EENT Eyes: Present: PERRL ENT: hearing intact, clear oral mucosa - Neck Neck: Present: supple, normal ROM - Respiratory Respiratory effort: normal Respiratory: bilateral: CTA - Cardiovascular Heart Sounds: Present: S1 & S2. Absent: rub, click - Extremities Extremities: pulses symmetrical, No edema Peripheral Pulses: within normal limits - Abdominal General gastrointestinal: Present: soft, non-tender, non-distended, normal bowel sounds Female genitourinary: Present: normal - Integumentary Integumentary: Present: clear, warm, dry - Musculoskeletal Musculoskeletal: gait normal, strength equal bilaterally - Psychiatric Psychiatric: appropriate mood/affect, intact judgment & insight - Neurologic Neurologic: CNII-XII intact, moves all extremities Plan Follow up with: PRIMARY CARE, [Primary Care Provider] - 3-5 Days Prescriptions: Ipratropium/Albuterol Sulfate [DUONEB *Not for PRN Use*] 1 ampul IH Q6HR PRN # 120 ampul.neb PRN Reason: Shortness Of Breath Ipratropium/Albuterol Sulfate [Combivent Respimat] 2 puff IH QID #1 mist.inhal Mometasone/Formoterol [Dulera 200 Mcg/5 Mcg Inhaler] 2 puff IH BID #1 hfa.aer.ad Nicotine [Habitrol] 7 mg TD QDAY #30 patch Tiotropium [Spiriva] 2 puff IH QDAY PRN #30 cap PRN Reason: sob
--- NOTE | 2016-12-27 12:33 | Progress Note ---
Assessment and Plan COPD exacerbation Elevated troponin Hypertension Tobacco abuse Echocardiogram is normal left ventricle systolic function, ejection fraction 60- 65%. Recommendations: Pulmonary evaluation and management of exacerbation of COPD. Due to equivocal elevation and cardiac isoenzymes and multiple risk factors, we will recommend a stress thallium test for cardiac evaluation tomorrow morning. Advised smoking cessation. Subjective Date of service: 12/27/16 Interval history: Patient reports her breathing is better. She denies chest pain. Objective Vital Signs Temp Pulse Pulse Pulse Resp Resp Resp 12/27/16 12:29 84 12/27/16 10:00 76 20 12/27/16 09:05 69 20 12/27/16 08:55 66 18 12/27/16 08:00 97.7 F 71 18 12/27/16 06:41 70 12/27/16 04:00 98.2 F 70 18 12/27/16 00:00 98.1 F 69 18 12/26/16 22:12 78 12/26/16 22:05 75 18 12/26/16 22:00 20 12/26/16 21:58 68 18 12/26/16 20:29 98.4 F 18 12/26/16 16:38 99.6 F 89 20 12/26/16 16:00 98 H 12/26/16 13:39 98.7 F 81 18 12/26/16 13:30 98.7 F 76 16 BP BP BP Pulse Ox 12/27/16 12:29 12/27/16 10:00 12/27/16 09:05 12/27/16 08:55 12/27/16 08:00 146/70 12/27/16 06:41 12/27/16 04:00 159/90 159/90 94 12/27/16 00:00 144/74 93 12/26/16 22:12 174/84 12/26/16 22:05 12/26/16 22:00 12/26/16 21:58 12/26/16 20:29 174/84 12/26/16 16:38 168/76 95 12/26/16 16:00 12/26/16 13:39 166/86 99 12/26/16 13:30 166/86 99 - Physical Examination General: No Apparent Distress HEENT: Positive: PERRL Neck: Positive: trachea midline Cardiac: Positive: Reg Rate and Rhythm Lungs: Positive: Decreased Breath Sounds Neuro: Positive: Grossly Intact
--- NOTE | 2016-12-27 13:05 | Consultation ---
History of Present Illness Consult date: 12/27/16 Requesting physician: WIN HOPKINS Reason for consult: COPD History of present illness: 66 y/o female with known COPD, followed by Dr. Tee, admitted with atypical chest pain and mildly elevated troponin. Past History Past Medical History: COPD, hypertension Past Surgical History: No surgical history Social history: smoking Family history: CAD, hypertension Medications and Allergies Allergies Allergy/AdvReac Type Severity Reaction Status Date / Time No Known Allergies Allergy Unverified 12/25/16 05:14 Home Medications Medication Instructions Recorded Confirmed Last Taken Type Amlodipine Besylate 5 mg PO DAILY 12/25/16 12/25/16 12/24/16 History Citalopram Hydrobromide 40 mg PO DAILY 12/25/16 12/25/16 12/24/16 History [Citalopram HBr] Lovastatin (Nf) [Mevacor (Nf)] 20 mg PO QHS 12/25/16 12/25/16 12/24/16 History Ipratropium/Albuterol Sulfate 2 puff IH QID #1 mist.inhal 12/27/16 Unknown Rx [Combivent Respimat] Ipratropium/Albuterol Sulfate 1 ampul IH Q6HR PRN #120 ampul.neb 12/27/16 Unknown Rx [DUONEB *Not for PRN Use*] Mometasone/Formoterol [Dulera 200 2 puff IH BID #1 hfa.aer.ad 12/27/16 Unknown Rx Mcg/5 Mcg Inhaler] Nicotine [Habitrol] 7 mg TD QDAY #30 patch 12/27/16 Unknown Rx Tiotropium [Spiriva] 2 puff IH QDAY PRN #30 cap 12/27/16 Unknown Rx Active Meds: Active Medications Acetaminophen (Tylenol) 650 mg PO Q4H PRN PRN Reason: Pain MILD(1-3)/Fever >100.5/UMANA Last Admin: 12/25/16 22:14 Dose: 650 mg Albuterol (Proventil) 2.5 mg IH Q4HRT PRN PRN Reason: Shortness Of Breath Last Admin: 12/26/16 21:58 Dose: 2.5 mg Albuterol/Ipratropium (Duoneb *Not For Prn Use*) 1 ampul IH Q6HRT [facility] Last Admin: 12/27/16 08:55 Dose: 1 ampul Amlodipine Besylate (Norvasc) 5 mg PO QDAY [facility] Last Admin: 12/27/16 10:31 Dose: 5 mg Aspirin (Aspirin) 325 mg PO DAILY [facility] Last Admin: 12/27/16 10:30 Dose: 325 mg Bisacodyl (Dulcolax) 10 mg [place] QDAY PRN PRN Reason: Constipation unrelieved by MOM Levofloxacin/Dextrose (Levaquin 250mg/50ml) 250 mg in 50 mls @ 50 mls/hr IV Q24HR [facility] Last Admin: 12/27/16 10:29 Dose: 50 mls/hr Methylprednisolone Sodium Succinate (Solu-Medrol) 40 mg IV BID [facility] Last Admin: 12/27/16 10:31 Dose: 40 mg Morphine Sulfate (Morphine) 2 mg IV Q4H PRN PRN Reason: Pain, Moderate (4-6) Nicotine (Habitrol) 7 mg TD QDAY [facility] Last Admin: 12/27/16 10:30 Dose: 7 mg Nitroglycerin (Nitrostat) 0.4 mg SL .Q5MIN PRN PRN Reason: Chest Pain Ondansetron HCl (Zofran) 4 mg IV Q4H PRN PRN Reason: Nausea And Vomiting Simvastatin (Zocor) 20 mg PO QHS [facility] Last Admin: 12/26/16 22:12 Dose: 20 mg Review of Systems All systems: negative Physical Examination Vital signs: Vital Signs Pulse Resp BP Pulse Ox 122 H 23 151/82 92 12/24/16 20:49 12/24/16 20:49 12/24/16 20:49 12/24/16 20:49 General appearance: no acute distress, alert Eyes: non-icteric ENT: oropharynx moist Neck: supple Effort: normal Ascultation: Bilateral: clear, diminished breath sounds Percussion: Right: not dull Tactile fremitus: Bilateral: normal Cardiovascular: regular rate and rhythm Gastrointestinal: normoactive bowel sounds, soft Results - Laboratory Findings CBC and BMP: 12/26/16 05:42 12/26/16 05:42 ABG POC ABG pH 7.376 (7.35-7.45) 12/25/16 02:39 POC ABG pCO2 43.3 (35-45) 12/25/16 02:39 POC ABG pO2 50 (80-105) L 12/25/16 02:39 POC ABG HCO3 25.3 12/25/16 02:39 POC ABG Total CO2 27 12/25/16 02:39 POC ABG O2 Sat 84 12/25/16 02:39 PT/INR, D-dimer PT 12.3 Sec. (12.2-14.9) 12/25/16 02:38 INR 0.92 (0.87-1.13) 12/25/16 02:38 Abnormal lab findings: Abnormal Labs 12/25/16 12/25/16 12/26/16 06:49 13:19 05:42 WBC 4.0 L Lymph # 0.7 L Seg Neutrophils % 77.7 H Glucose POC Glucose Total Creatine Kinase 306 H 340 H CK-MB (CK-2) 7.5 H 9.1 H Troponin T 0.088 H D 12/26/16 12/27/16 05:42 00:05 WBC Lymph # Seg Neutrophils % Glucose 123 H POC Glucose 115 H Total Creatine Kinase CK-MB (CK-2) Troponin T - Diagnostic Findings Chest x-ray: image reviewed (no evidence of acute disease, possible vascular congestion) Assessment and Plan 66 y/o female admitted with shortness of breath. 1. Will start pulmicort and brovanan nebs as she takes dulera at home 2. No steroids necessary at this point 3. Check BNP 4. Smoking cessation discussed and counseled.
--- NOTE | 2016-12-27 13:47 | Progress Note ---
Assessment and Plan Assessment and plan: Patient is a 66-year-old black female with past medical history of hypertension and COPD who presents to the emergency department with complaining of shortness of breath.Until yesterday patient was at her normal baseline state of health. She developed shortness of breath yesterday. COPD exacerbation Continue steroids, aggressive nebulizer treatments and empiric antibiotics, continue oxygen supplementation Acute hypoxic respiratory failure -Continue supplemental oxygen, continue to wean as tolerated Hypertension We will resume home antihypertensive medications Closely monitor blood pressure Elevated troponin, appears to be a type II non-STEMI -Troponins have trended down, cardiology consult pending, patient will need ischemic stratification , for stress test tomorrow Tobacco use -continue nicotine patch -Smoking cessation Counseling done. Patient strongly advised to quit. DVT prophylaxis Lovenox History Interval history: Shortness of breath is improved, wheezing is improved. She has occasional chest pain but it is resolved at this time Hospitalist Physical - Physical exam Narrative exam: General.: Appears well, no distress, nontoxic HEENT: Moist mucous membranes, extraocular muscles intact, no lymphadenopathy Neck: supple Cardiac: S1-S2 heard Lungs: Decreased air entry Abdomen: soft , nontender, nondistended, bowel sounds positive Extremities: no edema clubbing or cyanosis Skin: no rash or lesions Neurologic: no gross focal deficits Psych: appropriate behavior, appropriate mood, corporative, judgment intact - Constitutional Vitals: Temp Pulse Resp BP Pulse Ox 97.7 F 84 20 146/70 94 12/27/16 08:00 12/27/16 12:29 12/27/16 10:00 12/27/16 08:00 12/27/16 04:00 General appearance: Present: no acute distress, well-nourished Results - Labs CBC & Chem 7: 12/26/16 05:42 12/26/16 05:42 Labs: Laboratory Last Values WBC 4.0 K/mm3 (4.5-11.0) L 12/26/16 05:42 RBC 4.62 M/mm3 (3.65-5.03) 12/26/16 05:42 Hgb 13.8 gm/dl (10.1-14.3) 12/26/16 05:42 Hct 40.5 % (30.3-42.9) 12/26/16 05:42 MCV 88 fl (79-97) 12/26/16 05:42 MCH 30 pg (28-32) 12/26/16 05:42 MCHC 34 % (30-34) 12/26/16 05:42 RDW 14.8 % (13.2-15.2) 12/26/16 05:42 Plt Count 227 K/mm3 (140-440) 12/26/16 05:42 Lymph % (Auto) 18.6 % (13.4-35.0) 12/26/16 05:42 [place] % (Auto) 3.4 % (0.0-7.3) 12/26/16 05:42 Eos % (Auto) 0.1 % (0.0-4.3) 12/26/16 05:42 Baso % (Auto) 0.2 % (0.0-1.8) 12/26/16 05:42 Lymph # 0.7 K/mm3 (1.2-5.4) L 12/26/16 05:42 [place] # 0.1 K/mm3 (0.0-0.8) 12/26/16 05:42 Eos # 0.0 K/mm3 (0.0-0.4) 12/26/16 05:42 Baso # 0.0 K/mm3 (0.0-0.1) 12/26/16 05:42 Seg Neutrophils % 77.7 % (40.0-70.0) H 12/26/16 05:42 Seg Neutrophils # 3.1 K/mm3 (1.8-7.7) 12/26/16 05:42 PT 12.3 Sec. (12.2-14.9) 12/25/16 02:38 INR 0.92 (0.87-1.13) 12/25/16 02:38 APTT 27.9 Sec. (24.2-36.6) 12/25/16 02:38 POC ABG pH 7.376 (7.35-7.45) 12/25/16 02:39 POC ABG pCO2 43.3 (35-45) 12/25/16 02:39 POC ABG pO2 50 (80-105) L 12/25/16 02:39 POC ABG HCO3 25.3 12/25/16 02:39 POC ABG Total CO2 27 12/25/16 02:39 POC ABG O2 Sat 84 12/25/16 02:39 POC ABG Base Excess 0 12/25/16 02:39 FiO2 21 % 12/25/16 02:39 Sodium 142 mmol/L (137-145) 12/26/16 05:42 Potassium 3.7 mmol/L (3.6-5.0) 12/26/16 05:42 Chloride 104.3 mmol/L (98-107) 12/26/16 05:42 Carbon Dioxide 23 mmol/L (22-30) 12/26/16 05:42 Anion Gap 18 mmol/L 12/26/16 05:42 BUN 12 mg/dL (7-17) 12/26/16 05:42 Creatinine 0.7 mg/dL (0.7-1.2) 12/26/16 05:42 Estimated GFR > 60 ml/min 12/26/16 05:42 BUN/Creatinine Ratio 17.14 % 12/26/16 05:42 Glucose 123 mg/dL (65-100) H 12/26/16 05:42 POC Glucose 115 (70-105) H 12/27/16 00:05 Calcium 9.4 mg/dL (8.4-10.2) 12/26/16 05:42 Total Creatine Kinase 340 units/L (30-135) H 12/25/16 13:19 CK-MB (CK-2) 9.1 ng/mL (0.0-4.0) H 12/25/16 13:19 CK-MB (CK-2) Rel Index 2.6 (0-4) 12/25/16 13:19 Troponin T 0.021 ng/mL (0.00-0.029) 12/25/16 13:19 NT-Pro-B Natriuret Pep 138.4 pg/mL (0-900) 12/25/16 02:38 Triglycerides 106 mg/dL (2-149) 12/25/16 02:38 Cholesterol 168 mg/dL (50-199) 12/25/16 02:38 LDL Cholesterol Direct 82 mg/dL (50-130) 12/25/16 02:38 HDL Cholesterol 65 mg/dL (40-59) H 12/25/16 02:38 Cholesterol/HDL Ratio 2.58 % 12/25/16 02:38
[2016-12-27] MEDS: ROBITUSSIN DM PO PRN (18:51)
[2016-12-27] MEDS: ZOCOR PO SCH (20:37)
[2016-12-28] MEDS: DUONEB *Not for PRN Use IH SCH ×3 (01:29→15:33)
[2016-12-28] MEDS: ZOCOR PO SCH (02:30)
[2016-12-28] MEDS ORDERED: LEXISCAN IV ONE ×2 (08:42→09:05)
--- NOTE | 2016-12-28 09:44 | Progress Note ---
Assessment and Plan 66 y/o female admitted with shortness of breath. 1. Pending results of Stress, no objection to discharge from a pulmonary standpoint. 2. Resume all home COPD therapy 3. Smoking cessation is a must. Subjective Date of service: 12/28/16 Interval history: Patient not in room, most likely down in stress test. Objective Vital Signs - 12hr 12/27/16 12/28/16 12/28/16 23:31 02:37 03:25 Temperature 97.7 F 97.8 F Pulse Rate 65 65 63 Respiratory 20 20 Rate Blood Pressure 159/86 168/87 O2 Sat by Pulse 100 92 Oximetry Constitutional: no acute distress, alert Eyes: non-icteric ENT: oropharynx moist Neck: supple Effort: normal Ascultation: Bilateral: clear, diminished breath sounds Percussion: Right: not dull Tactile fremitus: Bilateral: normal Cardiovascular: regular rate and rhythm Gastrointestinal: normoactive bowel sounds, soft CBC and BMP: 12/26/16 05:42 12/26/16 05:42 ABG, PT/INR, D-dimer: ABG POC ABG pH 7.376 (7.35-7.45) 12/25/16 02:39 POC ABG pCO2 43.3 (35-45) 12/25/16 02:39 POC ABG pO2 50 (80-105) L 12/25/16 02:39 POC ABG HCO3 25.3 12/25/16 02:39 POC ABG Total CO2 27 12/25/16 02:39 POC ABG O2 Sat 84 12/25/16 02:39 PT/INR, D-dimer PT 12.3 Sec. (12.2-14.9) 12/25/16 02:38 INR 0.92 (0.87-1.13) 12/25/16 02:38 Abnormal lab findings: Abnormal Labs 12/25/16 12/25/16 12/26/16 06:49 13:19 05:42 WBC 4.0 L Lymph # 0.7 L Seg Neutrophils % 77.7 H Glucose POC Glucose Total Creatine Kinase 306 H 340 H CK-MB (CK-2) 7.5 H 9.1 H Troponin T 0.088 H D 12/26/16 12/27/16 12/27/16 05:42 00:05 09:49 WBC Lymph # Seg Neutrophils % Glucose 123 H POC Glucose 115 H 177 H Total Creatine Kinase CK-MB (CK-2) Troponin T 12/27/16 12/27/16 13:38 17:09 WBC Lymph # Seg Neutrophils % Glucose POC Glucose 134 H 153 H Total Creatine Kinase CK-MB (CK-2) Troponin T
--- NOTE | 2016-12-28 10:04 | Discharge Summary ---
Providers - Providers Date of Admission: 12/25/16 06:40 Attending physician: JAMAL DELGADO MD 12/25/16 11:56 Consult to Physician [CONS] Routine Consulting Provider: WIN HOPKINS Reason For Exam: Elevated Trop. Place consult to:: yes Notified:: Merlene Miramontes RN Phone number called:: yes Was contact made?: Yes If yes, spoke with:: Merlene Miramontes RN Time called:: 13:26 12/26/16 09:32 Consult to Physician [CONS] Routine Consulting Provider: HARPER GONSALES Reason For Exam: copd, acute hypoxia Place consult to:: pulm Notified:: office Phone number called:: [phone] Was contact made?: Yes If yes, spoke with:: esteban Time called:: 11:17 Primary care physician: [employer] SUPERVISOR Hospitalization Condition: Fair Hospital course: 66-year-old woman with past medical history of COPD, tobacco abuse and hypertension who presented with shortness of breath and wheezing. She was found to be hypoxic and having a COPD exacerbation. She was treated with steroids and nebulizers and empiric antibiotics. She also received oxygen supplementation and was successfully weaned off oxygen and she improved. She was restarted on the rest of her home medications. She was counseled about tobacco cessation, she verbalized understanding and will start on nicotine patches. She also did have a positive troponin, which trended downwards. This was thought to be type II non-STEMI due to demand ischemia. She was seen by cardiology and she went on to have a nuclear stress test that was, she is being discharged home in improved condition Discharge diagnoses COPD exacerbation Acute hypoxic respiratory failure Hypertension Elevated troponin, appears to be a type II non-STEMI Tobacco use Disposition: DC-01 TO HOME OR SELFCARE Time spent for discharge: 33 minutes Core Measure Documentation - Palliative Care Palliative Care/ Comfort Measures: Not Applicable - Core Measures Any of the following diagnoses?: none Exam - Constitutional Vitals: Temp Pulse Resp BP Pulse Ox 97.8 F 78 20 168/87 92 12/28/16 03:25 12/28/16 08:10 12/28/16 08:10 12/28/16 03:25 12/28/16 03:25 General appearance: Present: no acute distress, well-nourished - EENT Eyes: Present: PERRL ENT: hearing intact, clear oral mucosa - Neck Neck: Present: supple, normal ROM - Respiratory Respiratory effort: normal Respiratory: bilateral: CTA - Cardiovascular Heart Sounds: Present: S1 & S2. Absent: rub, click - Extremities Extremities: pulses symmetrical, No edema Peripheral Pulses: within normal limits - Abdominal General gastrointestinal: Present: soft, non-tender, non-distended, normal bowel sounds Female genitourinary: Present: normal - Integumentary Integumentary: Present: clear, warm, dry - Musculoskeletal Musculoskeletal: gait normal, strength equal bilaterally - Psychiatric Psychiatric: appropriate mood/affect, intact judgment & insight - Neurologic Neurologic: CNII-XII intact, moves all extremities Plan Follow up with: PRIMARY CARE, [Primary Care Provider] - 3-5 Days Prescriptions: Ipratropium/Albuterol Sulfate [DUONEB *Not for PRN Use*] 1 ampul IH Q6HR PRN # 120 ampul.neb PRN Reason: Shortness Of Breath Ipratropium/Albuterol Sulfate [Combivent Respimat] 2 puff IH QID #1 mist.inhal Mometasone/Formoterol [Dulera 200 Mcg/5 Mcg Inhaler] 2 puff IH BID #1 hfa.aer.ad Nicotine [Habitrol] 7 mg TD QDAY #30 patch predniSONE [Deltasone] 10 mg PO .TAPER #48 tab Tiotropium [Spiriva] 2 puff IH QDAY PRN #30 cap PRN Reason: sob
[2016-12-28] MEDS: NORVASC PO SCH (12:43)
[2016-12-28] MEDS: ASPIRIN PO SCH (12:44)
[2016-12-28] MEDS: ROBITUSSIN DM PO PRN (12:44)
[2016-12-28] MEDS: HABITROL TD SCH (12:47)
[2016-12-28] MEDS: LEVAQUIN 250MG/50ML 250 MG/50 ML BAG IV SCH (12:47)
[2016-12-28 12:51] VITALS: BP 173/90
--- NOTE | 2016-12-28 12:53 | Progress Note ---
Assessment and Plan COPD exacerbation Nonspecific minimal troponin elevation. MPI today preliminarily reveals no significant ischemia. Hypertension Tobacco abuse Echocardiogram is normal left ventricle systolic function, ejection fraction 60- 65%. Recommend: Continue current therapy - patient extensively counseled to stop smoking OK to discharge from cardiac perspective. Subjective Date of service: 12/28/16 Interval history: No cardiac complaints. Objective Vital Signs Temp Pulse Pulse Resp Resp BP Pulse Ox 12/28/16 12:43 83 173/90 12/28/16 08:10 78 20 12/28/16 08:00 72 20 12/28/16 03:25 97.8 F 63 20 168/87 92 12/28/16 02:37 65 12/27/16 23:31 97.7 F 65 20 159/86 100 12/27/16 19:43 86 16 12/27/16 19:39 98.5 F 67 20 153/77 97 12/27/16 19:33 90 16 12/27/16 13:40 71 20 12/27/16 13:39 99.0 F 18 160/79 12/27/16 13:37 84 160/79 93 12/27/16 13:30 68 18 - Physical Examination General: No Apparent Distress HEENT: Positive: PERRL Neck: Positive: trachea midline Cardiac: Positive: Reg Rate and Rhythm Lungs: Positive: Rhonchi Neuro: Positive: Grossly Intact Abdomen: Positive: Soft, Active Bowel Sounds
== END 2016-12-28 14:29 | disposition home or self-care (01) | DRG 189 ==
LOC: ED 00:37 → 4A 06:40 → 3A 10:01 → 4A 14:27
PROVIDERS: ADMIT Internal Medicine; ATTEND Internal Medicine
PROC: 4A033R1 Measurement of Arterial Saturation, Peripheral, Percutaneous Approach (ICD-10-PCS; principal; 2016-12-25)
DX: J96.01 Acute respiratory failure with hypoxia (principal); I21.4 Non-ST elevation (NSTEMI) myocardial infarction; J44.1 Chronic obstructive pulmonary disease with (acute) exacerbation; I10 Essential (primary) hypertension; F17.200 Nicotine dependence, unspecified, uncomplicated; Z82.49 Family history of ischemic heart disease and other diseases of the circulatory system
CPT/HCPCS: 36415; 71010; 78452; 80048; 80061; 82550; 82553; 82803; 82962; 83880; 84484; 85025; 85610; 85730; 93005; 93010; 93017; 93306; 94640; 96365; 96374; 99285; 99406; A9502; C1894; J1644; J1956; J2250; J2785; J2920; J3010; J7040

== ENCOUNTER 2017-08-03 01:18 | Inpatient (IN) | payer OTHER, MEDICARE ==
[2017-08-03] MEDS ORDERED: PROVENTIL IH ONE ×4 (01:25→03:56)
[2017-08-03] MEDS ORDERED: ATIVAN ONE (01:26)
[2017-08-03] MEDS ORDERED: ATIVAN IV ONE (01:29)
--- NOTE | 2017-08-03 01:38 | Emergency Department Report ---
ED Shortness of Breath HPI - General Chief Complaint: Dyspnea/Respdistress Stated Complaint: DERIK Time Seen by Provider: 08/03/17 01:26 Source: EMS - History of Present Illness Initial Comments: Patient with known history of COPD he has had worsening shortness of breath over the past day, with no relief with home nebulizer treatments with albuterol. She contacted EMS when it began getting worse, and was found in significant respiratory distress, with difficulty providing patient with bronchodilator treatment, as patient was in such discomfort that she required immediate BiPAP placement. IV of established, and patient was given 125 mg of Solu-Medrol in route prior to arrival. Patient arrives in significant acute distress continuing, but is awake and oriented, and has no history of pre- existing CHF. She's not had any fever chills or diaphoresis, no increased cough or congestion, but no known exposures. Patient had similar episode in December 2016, approximately 6 months earlier, during which time she had an elevation of her troponin levels, which were observed, and felt after cardiology consultation to be nonspecific, and secondary to increased effort from acute respiratory distress and dyspnea associated with her COPD exacerbation. Ejection fraction at that time on examination was 60-65%, patient recovered" uneventfully, and was discharged after clearing of her COPD. MD Complaint: shortness of breath -: This evening Severity: severe Pain Scale: 0 Consistency: constant Improves With: nothing Worsens With: nothing Known History Of: COPD Associated Symptoms: denies other symptoms Treatments Prior to Arrival: oxygen, bronchodilator, NIPPV, other (IV steroids) - Related Data Home Medications Medication Instructions Recorded Confirmed Last Taken Amlodipine Besylate 5 mg PO DAILY 12/25/16 12/25/16 12/24/16 Citalopram Hydrobromide 40 mg PO DAILY 12/25/16 12/25/16 12/24/16 [Citalopram HBr] Lovastatin (Nf) [Mevacor (Nf)] 20 mg PO QHS 12/25/16 12/25/16 12/24/16 Previous Rx's Medication Instructions Recorded Last Taken Type Ipratropium/Albuterol Sulfate 2 puff IH QID #1 mist.inhal 12/27/16 Unknown Rx [Combivent Respimat] Ipratropium/Albuterol Sulfate 1 ampul IH Q6HR PRN #120 ampul.neb 12/27/16 Unknown Rx [DUONEB *Not for PRN Use*] Mometasone/Formoterol [Dulera 200 2 puff IH BID #1 hfa.aer.ad 12/27/16 Unknown Rx Mcg/5 Mcg Inhaler] Nicotine [Habitrol] 7 mg TD QDAY #30 patch 12/27/16 Unknown Rx Tiotropium [Spiriva] 2 puff IH QDAY PRN #30 cap 12/27/16 Unknown Rx predniSONE [Deltasone] 10 mg PO .TAPER #48 tab 12/27/16 Unknown Rx Allergies Allergy/AdvReac Type Severity Reaction Status Date / Time No Known Allergies Allergy Unverified 12/25/16 05:14 ED Review of Systems ROS: Stated complaint: DERIK Other details as noted in HPI Comment: All other systems reviewed and negative Constitutional: denies: chills, diaphoresis, fever Eyes: denies: eye pain, eye discharge, vision change ENT: denies: ear pain, throat pain Respiratory: see HPI, shortness of breath, SOB at rest, wheezing Cardiovascular: denies: chest pain Endocrine: no symptoms reported Gastrointestinal: denies: abdominal pain, nausea, diarrhea Musculoskeletal: denies: back pain, joint swelling, arthralgia Skin: denies: rash, lesions Neurological: denies: headache, weakness Psychiatric: anxiety Hematological/Lymphatic: denies: easy bleeding, easy bruising ED Past Medical Hx - Past Medical History Previous Medical History?: Yes Hx Hypertension: Yes Hx Congestive Heart Failure: No Hx Diabetes: No Hx Asthma: Yes Hx COPD: Yes Hx HIV: No - Surgical History Additional Surgical History: Partial hysterectomy, herniorrhaphy, hemorrhoidectomy - Social History Smoking Status: Never Smoker Substance Use Type: None - Medications Home Medications: Home Medications Medication Instructions Recorded Confirmed Last Taken Type Amlodipine Besylate 5 mg PO DAILY 12/25/16 12/25/16 12/24/16 History Citalopram Hydrobromide 40 mg PO DAILY 12/25/16 12/25/16 12/24/16 History [Citalopram HBr] Lovastatin (Nf) [Mevacor (Nf)] 20 mg PO QHS 12/25/16 12/25/16 12/24/16 History Ipratropium/Albuterol Sulfate 2 puff IH QID #1 mist.inhal 12/27/16 Unknown Rx [Combivent Respimat] Ipratropium/Albuterol Sulfate 1 ampul IH Q6HR PRN #120 ampul.neb 12/27/16 Unknown Rx [DUONEB *Not for PRN Use*] Mometasone/Formoterol [Dulera 200 2 puff IH BID #1 hfa.aer.ad 12/27/16 Unknown Rx Mcg/5 Mcg Inhaler] Nicotine [Habitrol] 7 mg TD QDAY #30 patch 12/27/16 Unknown Rx Tiotropium [Spiriva] 2 puff IH QDAY PRN #30 cap 12/27/16 Unknown Rx predniSONE [Deltasone] 10 mg PO .TAPER #48 tab 12/27/16 Unknown Rx ED Physical Exam - General General appearance: in distress - Head Head exam: Present: atraumatic, normocephalic - Eye Eye exam: Present: PERRL - ENT ENT exam: Present: normal exam - Neck Neck exam: Present: normal inspection. Absent: tenderness - Respiratory Respiratory exam: Present: respiratory distress, wheezes. Absent: rales, rhonchi, stridor - Cardiovascular Cardiovascular Exam: Present: regular rate, normal rhythm - GI/Abdominal GI/Abdominal exam: Present: soft. Absent: tenderness, guarding, rebound - Rectal Rectal exam: Present: deferred - Extremities Exam Extremities exam: Present: normal inspection. Absent: pedal edema - Back Exam Back exam: Absent: CVA tenderness (R) - Neurological Exam Neurological exam: Present: alert, oriented X3. Absent: motor sensory deficit - Psychiatric Psychiatric exam: Present: agitated - Skin Skin exam: Present: warm, dry ED Course Vital Signs 08/03/17 08/03/17 08/03/17 01:18 01:23 01:31 Temperature 98.7 F Pulse Rate 102 H 103 H Pulse Rate [ 102 H Bilateral] Respiratory 28 H 22 Rate Respiratory 28 H Rate [Bilateral ] Blood Pressure 146/67 146/67 O2 Sat by Pulse 98 98 Oximetry 08/03/17 08/03/17 08/03/17 01:47 02:23 03:43 Temperature Pulse Rate 84 Pulse Rate [ 117 H Bilateral] Respiratory 25 H 18 Rate Respiratory 20 Rate [Bilateral ] Blood Pressure 107/68 O2 Sat by Pulse 100 Oximetry 08/03/17 08/03/17 08/03/17 03:48 04:03 05:25 Temperature Pulse Rate 87 Pulse Rate [ 84 91 H Bilateral] Respiratory 18 Rate Respiratory 18 18 Rate [Bilateral ] Blood Pressure O2 Sat by Pulse 98 Oximetry 08/03/17 06:24 Temperature Pulse Rate 96 H Pulse Rate [ Bilateral] Respiratory 20 Rate Respiratory Rate [Bilateral ] Blood Pressure 137/71 O2 Sat by Pulse 100 Oximetry - Reevaluation(s) Reevaluation #1: 08/03/17 04:06 Patient significantly improved after continuous treatment with albuterol, and BiPAP treatment at 18 cm over 8, but had persistent acidosis with pH of 7.18, and low oxygen saturation of 89% and PO2 of 68 on 40% oxygen. Patient significant improvement with increase of oxygen to 60% and continuation of BiPAP. Troponin noted to be elevated at 0.03, and this is consistent with patient's prior nonspecific troponin elevation during her exacerbation of December 2016. - Consultations Consultation #1: 08/03/17 06:45 Dr. Wilson contacted for admission for acute exacerbation of COPD, and admission was deferred while evaluation was performed in the emergency department to rule out possible pulmonary embolism on the basis of a mildly elevated d-dimer. ED Medical Decision Making - Lab Data Result diagrams: 08/03/17 01:58 08/03/17 01:58 - EKG Data -: EKG Interpreted by De EKG shows normal: sinus rhythm, axis (40), QRS complexes (unremarkable, no ventricular conduction delay), ST-T waves (4 quality tracing, but no acute ST elevations, and with minor T-wave flattening and early precordial leads) Rate: tachycardia - EKG Data Interpretation: nonspecific ST-T wave maria c - Radiology Data Radiology results: report reviewed Unremarkable chest x-ray with no evidence of pneumonia, pulmonary vascular congestion, pneumothorax, or other cardiopulmonary abnormality. - Medical Decision Making Patient has had a significant exacerbation of COPD, with rapid improvement after placement of noninvasive BiPAP pressure support and continuous bronchodilator treatment, with a minor residual acidosis, which was corrected with adjustment of patient's BiPAP and oxygenation status, and was resting comfortably, although with some residual wheezes. Repeat blood gas showed normalization of pH of 7.33, and oxygen saturation of 100%, with PO2 of 205 on 45% oxygen. - Differential Diagnosis exacerbation COPD, pneumonia, myocardial infarction, angina Critical care time in (mins) excluding proc time.: 60 (patient with significant life-threatening respiratory distress, and an imminent risk of decompensation and in the absence of immediate stabilizing treatment.) Critical care attestation.: If time is entered above; I have spent that time in minutes in the direct care of this critically ill patient, excluding procedure time. Critical Care Time: 60 minutes ED Disposition Disposition: 09 OP ADMIT IP TO THIS HOSP Condition: Stable Time of Disposition: 06:00
[2017-08-03 02:24] LABS: Hematocrit 43.3 % (30.3-42.9); Hemoglobin 14.4 gm/dl (10.1-14.3); Mean Corpuscular HGB Conc 33 % (30-34); Mean Corpuscular Hemoglobin 29 pg (28-32); Mean Corpuscular Volume 88 fl (79-97); Platelet Count 262 K/mm3 (140-440); Red Cell Distribution Width 15.2 % (13.2-15.2)
[2017-08-03 02:35] LABS: INR 0.82 (0.87-1.13)
--- NOTE | 2017-08-03 02:35 | XRay Report ---
FINAL REPORT PROCEDURE: XR CHEST 1V AP TECHNIQUE: Chest radiograph anteroposterior view. CPT 79866 HISTORY: Dyspnea COMPARISON: No prior studies are available for comparison. FINDINGS: Heart: Normal. Mediastinum/Vessels: Normal. Lungs/Pleural space: Lungs are clear. There are no infiltrates, effusions or pneumothoraces.. Bony thorax: No acute osseous abnormality. Life support devices: None. IMPRESSION: No acute cardiopulmonary abnormality.
[2017-08-03 02:36] LABS: Alanine Aminotransferase 23 units/L (7-56); Albumin 4.3 g/dL (3.9-5); BUN/Creatinine Ratio 24; Blood Urea Nitrogen 19 mg/dL (7-17); Calcium 8.8 mg/dL (8.4-10.2); Hemolysis Index 5
[2017-08-03] MEDS ORDERED: NACL 0.9% 250ML 250 ML ONE (03:21)
[2017-08-03 03:29] LABS: Chol/HDL Ratio 2.55 %
[2017-08-03 03:54] LABS: Eosinophils % (Manual) 0 % (0.0-4.3); Monocytes % (Manual) 0 % (0.0-7.3); RBC Morphology Normal; Total Cells Counted 100
[2017-08-03 03:55] LABS: Platelet Estimate Consistent w Auto
[2017-08-03] MEDS ORDERED: NACL 0.9% 1000 ML 1,000 ML IV SCH (04:00)
--- NOTE | 2017-08-03 05:07 | History and Physical Report ---
History of Present Illness Date of examination: 08/03/17 History of present illness: 66 year old woman with history of hypertension, COPD comes emergency room with complaints of shortness of breath started last night. Her symptoms are not relieved with her nebulizer treatments at home, she seems to emergency room for further evaluation. Complaining of cough productive of yellow phlegm. In the emergency room she was hypoxic and was started on BiPAP Review of systems Constitutional: no weight loss, chills Ears, eyes, nose, mouth and throat: no nasal congestion, no nasal discharge, no sinus pressure, no vision change, no red eye. Neck: No neck pain or rigidity. Cardiovascular: no chest pain, palpitations Respiratory: + cough, shortness of breath Gastrointestinal: no abdominal pain, hematochezia Genitourinary : no dysuria, frequency , no hematuria Musculoskeletal: no joint swelling or muscle ache Integumentary: no rash, no pruritis Neurological: no parathesias, no numbness, no focal weakness Endocrine: no cold or heat intolerance, no polyuria or polydipsia Hematologic/Lymphatic: no easy bruising, no easy bleeding, no gland swelling Allergic/Immunologic: no urticaria, no angioedema. PAST MEDICAL HISTORY: COPD, hypertension PAST SURGICAL HISTORY: partial hysterecctomy SOCIAL HISTORY: States she smokes too much, denies alcohol, drug use FAMILY HISTORY: hypertension Medications and Allergies Allergies Allergy/AdvReac Type Severity Reaction Status Date / Time No Known Allergies Allergy Unverified 12/25/16 05:14 Home Medications Medication Instructions Recorded Confirmed Last Taken Type Amlodipine Besylate 5 mg PO DAILY 12/25/16 12/25/16 12/24/16 History Citalopram Hydrobromide 40 mg PO DAILY 12/25/16 12/25/16 12/24/16 History [Citalopram HBr] Lovastatin (Nf) [Mevacor (Nf)] 20 mg PO QHS 12/25/16 12/25/16 12/24/16 History Ipratropium/Albuterol Sulfate 2 puff IH QID #1 mist.inhal 12/27/16 Unknown Rx [Combivent Respimat] Ipratropium/Albuterol Sulfate 1 ampul IH Q6HR PRN #120 ampul.neb 12/27/16 Unknown Rx [DUONEB *Not for PRN Use*] Mometasone/Formoterol [Dulera 200 2 puff IH BID #1 hfa.aer.ad 12/27/16 Unknown Rx Mcg/5 Mcg Inhaler] Nicotine [Habitrol] 7 mg TD QDAY #30 patch 12/27/16 Unknown Rx Tiotropium [Spiriva] 2 puff IH QDAY PRN #30 cap 12/27/16 Unknown Rx predniSONE [Deltasone] 10 mg PO .TAPER #48 tab 12/27/16 Unknown Rx Active Meds: Active Medications Sodium Chloride (Nacl 0.9% 1000 Ml) 1,000 mls @ 150 mls/hr IV DIRECT FERMIN Exam - Physical Exam Narrative exam: Gen. appearance: Patient lying in bed, no apparent distress on BIPAP HEENT: Normocephalic, atraumatic, pupils equally round and reactive to light, extraocular movement intact, and no sclericterus,. No JVD or thyromegaly or nodule,neck supple, no carotid bruit ,mucous membranes moist, no exudate or erythema Heart: S1, S2, regular rate and rhythm Lungs: Wheezing bilaterally, breathing comfortable Abdomen: Positive bowel sounds, nontender, nondistended, no organomegaly Extremity: No edema, cyanosis, clubbing Skin: No rash, nodules, warm, dry Neuro: Oriented 3, cranial nerves II-12 intact, speech is fluent, motor and sensory intact - Constitutional Vitals: Temp Pulse Resp BP Pulse Ox 98.7 F 91 H 18 107/68 100 08/03/17 01:31 08/03/17 04:03 08/03/17 04:03 08/03/17 03:43 08/03/17 03:43 Results - Labs CBC & Chem 7: 08/03/17 01:58 08/03/17 01:58 Labs: Abnormal lab results 08/03/17 08/03/17 08/03/17 Range/Units 01:58 01:58 01:58 WBC 12.4 H (4.5-11.0) K/mm3 Hgb 14.4 H (10.1-14.3) gm/dl Hct 43.3 H (30.3-42.9) % Seg Neutrophils # Man 8.3 H (1.8-7.7) K/mm3 PT 11.7 L (12.2-14.9) Sec. INR 0.82 L (0.87-1.13) D-Dimer 291.13 H (0-234) ng/mlDDU POC ABG pH (7.35-7.45) POC ABG pCO2 (35-45) POC ABG pO2 (80-105) BUN 19 H (7-17) mg/dL Glucose 158 H (65-100) mg/dL Magnesium 3.00 H (1.7-2.3) mg/dL Troponin T (0.00-0.029) ng/mL Cholesterol (50-199) mg/dL HDL Cholesterol (40-59) mg/dL 08/03/17 08/03/17 08/03/17 Range/Units 01:58 02:18 03:52 WBC (4.5-11.0) K/mm3 Hgb (10.1-14.3) gm/dl Hct (30.3-42.9) % Seg Neutrophils # Man (1.8-7.7) K/mm3 PT (12.2-14.9) Sec. INR (0.87-1.13) D-Dimer (0-234) ng/mlDDU POC ABG pH 7.189 L 7.334 L (7.35-7.45) POC ABG pCO2 77.9 H 53.8 H (35-45) POC ABG pO2 67 L 205 H (80-105) BUN (7-17) mg/dL Glucose (65-100) mg/dL Magnesium (1.7-2.3) mg/dL Troponin T 0.032 H (0.00-0.029) ng/mL Cholesterol 207 H (50-199) mg/dL HDL Cholesterol 81 H (40-59) mg/dL - Imaging and Cardiology Chest x-ray: report reviewed Assessment and Plan Assessment Acute Respiratory failure COPD exacerbation Abnormal cardiac enzymes Hypertension Plan Continue BIPAP Start high dose steroids, nebulizer treatments Check cardiac enzymes Continue appropiate outpatient medications CT chest pending
[2017-08-03] MEDS ORDERED: NACL ONE (05:10)
[2017-08-03] MEDS ORDERED: SODIUM CHLORIDE FLUSH SYRINGE 10 ML IV PRN (05:36)
[2017-08-03] MEDS ORDERED: ZOFRAN IV PRN (05:36)
[2017-08-03] MEDS ORDERED: TYLENOL PO PRN (05:36)
--- NOTE | 2017-08-03 06:34 | Cat Scan Report ---
FINAL REPORT PROCEDURE: CT ANGIO CHEST TECHNIQUE: Computerized tomographic angiography of the chest was performed after the IV injection of iodinated nonionic contrast including image processing. The image data was postprocessed using 2-dimensional multiplanar reformatted (MPR) and 3-dimensional (MIP and/or volume rendered) techniques. HISTORY: sob COMPARISON: No prior studies are available for comparison. FINDINGS: Heart and pericardium: Normal. Thoracic aorta: Normal. Pulmonary vasculature: Normal. Lymph nodes: No enlarged thoracic lymph nodes. Lungs: There are fibrotic changes at the lung bases. There is mild COPD. There are no infiltrates. Pleural space: There are no pleural effusions or pneumothoraces.. Musculoskeletal structures: No significant abnormality. Upper abdominal structures: No significant abnormality. IMPRESSION: There is no pulmonary embolism. There is no thoracic aortic aneurysm or dissection. There are fibrotic changes at the lung bases. There is mild COPD. There are no infiltrates. There are no pleural effusions or pneumothoraces..
[2017-08-03 06:38] LABS: Creatine Kinase MB 8.4 ng/mL (0.0-4.0)
[2017-08-03] MEDS: DUONEB *Not for PRN Use IH SCH ×3 (08:57→19:47)
[2017-08-03] MEDS: LOVENOX SUB-Q SCH (10:02)
[2017-08-03] MEDS: SODIUM CHLORIDE FLUSH SYRINGE 10 ML IV SCH ×2 (10:02→22:00)
[2017-08-03 13:29] LABS: Creatine Kinase MB 13.4 ng/mL (0.0-4.0)
[2017-08-03] MEDS ORDERED: NORVASC PO ONE (15:05)
--- NOTE | 2017-08-03 15:05 | Progress Note ---
Assessment and Plan - Patient Problems (1) Acute respiratory failure Current Visit: Yes Status: Acute Plan to address problem: Acute respiratory failure patient does not have any evidence of pulmonary embolism or acute DVT most significant for COPD we'll place patient on nebulizers and steroids in. And antibiotics with Levaquin and currently on a nonrebreather. Should do well and will wean oxygen to nasal cannula as tolerated. (2) COPD (chronic obstructive pulmonary disease) Current Visit: Yes Status: Acute Plan to address problem: current nebulizes will need outpatient long-acting beta agonists versus long- acting steroid plus albuterol (3) Hypertension Current Visit: Yes Status: Acute Plan to address problem: Restart patient on amlodipine 5 mg daily. History Interval history: Patient actually breathing much better. Seem to be COPD exacerbation. Patient able to speak mostly in full sentences but does become dyspneic after talking to much. Patient concerned about her bag and receiving her own blood pressure medications. Hospitalist Physical - Constitutional Vitals: Temp Pulse Resp BP Pulse Ox 97.6 F 93 H 18 115/61 98 08/03/17 08:34 08/03/17 09:07 08/03/17 09:07 08/03/17 08:34 08/03/17 08:57 General appearance: Present: mild distress - EENT Eyes: Present: PERRL, EOM intact ENT: hearing intact, dentition normal, no oropharyngeal erythema, no poor dentition, no thrush, no ulcerations - Neck Neck: Present: supple, normal ROM. Absent: enlarged thyroid, masses or JVD, cervical LAD, carotid bruits - Respiratory Respiratory: bilateral: diminished (decrease breath sounds bilaterally), wheezing - Cardiovascular Rhythm: regular - Extremities Extremities: no ischemia, pulses intact, pulses symmetrical, No edema, normal temperature, normal color, Full ROM - Abdominal General gastrointestinal: soft, non-tender, non-distended, normal bowel sounds, other (scaphoid), no hypoactive bowel sounds, no hepatomegaly, no splenomegaly - Integumentary Integumentary: Present: clear, warm, dry. Absent: jaundice, rash, clammy - Psychiatric Psychiatric: appropriate mood/affect, intact judgment & insight - Neurologic Neurologic: CNII-XII intact, focal deficits, moves all extremities Results - Labs CBC & Chem 7: 08/03/17 01:58 08/03/17 01:58 Labs: Laboratory Last Values WBC 12.4 K/mm3 (4.5-11.0) H 08/03/17 01:58 RBC 4.90 M/mm3 (3.65-5.03) 08/03/17 01:58 Hgb 14.4 gm/dl (10.1-14.3) H 08/03/17 01:58 Hct 43.3 % (30.3-42.9) H 08/03/17 01:58 MCV 88 fl (79-97) 08/03/17 01:58 MCH 29 pg (28-32) 08/03/17 01:58 MCHC 33 % (30-34) 08/03/17 01:58 RDW 15.2 % (13.2-15.2) 08/03/17 01:58 Plt Count 262 K/mm3 (140-440) 08/03/17 01:58 Lymph # Retail Marketing Specialist 08/03/17 01:58 Add Manual Diff Complete 08/03/17 01:58 Total Counted 100 08/03/17 01:58 Seg Neuts % (Manual) 67.0 % (40.0-70.0) 08/03/17 01:58 Band Neutrophils % 0 % 08/03/17 01:58 Lymphocytes % (Manual) 31.0 % (13.4-35.0) 08/03/17 01:58 Reactive Lymphs % (Man) 1.0 % 08/03/17 01:58 Monocytes % (Manual) 0 % (0.0-7.3) 08/03/17 01:58 Eosinophils % (Manual) 0 % (0.0-4.3) 08/03/17 01:58 Basophils % (Manual) 1.0 % (0.0-1.8) 08/03/17 01:58 Metamyelocytes % 0 % 08/03/17 01:58 Myelocytes % 0 % 08/03/17 01:58 Promyelocytes % 0 % 08/03/17 01:58 Blast Cells % 0 % 08/03/17 01:58 Nucleated RBC % Not Reportable 08/03/17 01:58 Seg Neutrophils # Man 8.3 K/mm3 (1.8-7.7) H 08/03/17 01:58 Band Neutrophils # 0.0 K/mm3 08/03/17 01:58 Lymphocytes # (Manual) 3.8 K/mm3 (1.2-5.4) 08/03/17 01:58 Abs React Lymphs (Man) 0.1 K/mm3 08/03/17 01:58 Monocytes # (Manual) 0.0 K/mm3 (0.0-0.8) 08/03/17 01:58 Eosinophils # (Manual) 0.0 K/mm3 (0.0-0.4) 08/03/17 01:58 Basophils # (Manual) 0.1 K/mm3 (0.0-0.1) 08/03/17 01:58 Metamyelocytes # 0.0 K/mm3 08/03/17 01:58 Myelocytes # 0.0 K/mm3 08/03/17 01:58 Promyelocytes # 0.0 K/mm3 08/03/17 01:58 Blast Cells # 0.0 K/mm3 08/03/17 01:58 WBC Morphology Not Reportable 08/03/17 01:58 Hypersegmented Neuts Not Reportable 08/03/17 01:58 Hyposegmented Neuts Not Reportable 08/03/17 01:58 Hypogranular Neuts Not Reportable 08/03/17 01:58 Smudge Cells Not Reportable 08/03/17 01:58 Toxic Granulation Not Reportable 08/03/17 01:58 Toxic Vacuolation Not Reportable 08/03/17 01:58 Dohle Bodies Not Reportable 08/03/17 01:58 Pelger-Huet Anomaly Not Reportable 08/03/17 01:58 Brisa Rods Not Reportable 08/03/17 01:58 Platelet Estimate Consistent w auto 08/03/17 01:58 Clumped Platelets Not Reportable 08/03/17 01:58 Plt Clumps, EDTA Not Reportable 08/03/17 01:58 Large Platelets Not Reportable 08/03/17 01:58 Giant Platelets Not Reportable 08/03/17 01:58 Platelet Satelliting Not Reportable 08/03/17 01:58 Plt Morphology Comment Not Reportable 08/03/17 01:58 RBC Morphology Normal 08/03/17 01:58 Dimorphic RBCs Not Reportable 08/03/17 01:58 Polychromasia Not Reportable 08/03/17 01:58 Hypochromasia Not Reportable 08/03/17 01:58 Poikilocytosis Not Reportable 08/03/17 01:58 Anisocytosis Not Reportable 08/03/17 01:58 Microcytosis Not Reportable 08/03/17 01:58 Macrocytosis Not Reportable 08/03/17 01:58 Spherocytes Not Reportable 08/03/17 01:58 Pappenheimer Bodies Not Reportable 08/03/17 01:58 Sickle Cells Not Reportable 08/03/17 01:58 Target Cells Not Reportable 08/03/17 01:58 Tear Drop Cells Not Reportable 08/03/17 01:58 Ovalocytes Not Reportable 08/03/17 01:58 Helmet Cells Not Reportable 08/03/17 01:58 [place] Bodies Not Reportable 08/03/17 01:58 [place] Rings Not Reportable 08/03/17 01:58 Katelyn Cells Not Reportable 08/03/17 01:58 Bite Cells Not Reportable 08/03/17 01:58 Crenated Cell Not Reportable 08/03/17 01:58 Elliptocytes Not Reportable 08/03/17 01:58 Acanthocytes (Spur) Not Reportable 08/03/17 01:58 Rouleaux Not Reportable 08/03/17 01:58 Hemoglobin C Crystals Not Reportable 08/03/17 01:58 Schistocytes Not Reportable 08/03/17 01:58 Malaria parasites Not Reportable 08/03/17 01:58 Amadou Bodies Not Reportable 08/03/17 01:58 Hem Pathologist Commnt No 08/03/17 01:58 PT 11.7 Sec. (12.2-14.9) L 08/03/17 01:58 INR 0.82 (0.87-1.13) L 08/03/17 01:58 D-Dimer 291.13 ng/mlDDU (0-234) H 08/03/17 01:58 POC ABG pH 7.334 (7.35-7.45) L 08/03/17 03:52 POC ABG pCO2 53.8 (35-45) H 08/03/17 03:52 POC ABG pO2 205 (80-105) H 08/03/17 03:52 POC ABG HCO3 28.6 08/03/17 03:52 POC ABG Total CO2 30 08/03/17 03:52 POC ABG O2 Sat 100 08/03/17 03:52 POC ABG Base Excess 3 08/03/17 03:52 FiO2 60 % 08/03/17 03:52 Sodium 142 mmol/L (137-145) 08/03/17 01:58 Potassium 3.8 mmol/L (3.6-5.0) 08/03/17 01:58 Chloride 101.0 mmol/L (98-107) 08/03/17 01:58 Carbon Dioxide 28 mmol/L (22-30) 08/03/17 01:58 Anion Gap 17 mmol/L 08/03/17 01:58 BUN 19 mg/dL (7-17) H 08/03/17 01:58 Creatinine 0.8 mg/dL (0.7-1.2) 08/03/17 01:58 Estimated GFR > 60 ml/min 08/03/17 01:58 BUN/Creatinine Ratio 24 % 08/03/17 01:58 Glucose 158 mg/dL (65-100) H 08/03/17 01:58 Lactic Acid 1.00 mmol/L (0.7-2.0) 08/03/17 01:58 Calcium 8.8 mg/dL (8.4-10.2) 08/03/17 01:58 Magnesium 3.00 mg/dL (1.7-2.3) H 08/03/17 01:58 Total Bilirubin 0.20 mg/dL (0.1-1.2) 08/03/17 01:58 AST 35 units/L (5-40) 08/03/17 01:58 ALT 23 units/L (7-56) 08/03/17 01:58 Alkaline Phosphatase 119 units/L (35-129) 08/03/17 01:58 Total Creatine Kinase 257 units/L (30-135) H 08/03/17 11:59 CK-MB (CK-2) 13.4 ng/mL (0.0-4.0) H 08/03/17 11:59 CK-MB (CK-2) Rel Index 5.2 (0-4) H 08/03/17 11:59 Troponin T 0.067 ng/mL (0.00-0.029) H D 08/03/17 11:59 NT-Pro-B Natriuret Pep 53.52 pg/mL (0-900) 08/03/17 03:42 Total Protein 7.2 g/dL (6.3-8.2) 08/03/17 01:58 Albumin 4.3 g/dL (3.9-5) 08/03/17 01:58 Albumin/Globulin Ratio 1.5 % 08/03/17 01:58 Triglycerides 82 mg/dL (2-149) 08/03/17 01:58 Cholesterol 207 mg/dL (50-199) H 08/03/17 01:58 LDL Cholesterol Direct 116 mg/dL (50-130) 08/03/17 01:58 HDL Cholesterol 81 mg/dL (40-59) H 08/03/17 01:58 Cholesterol/HDL Ratio 2.55 % 08/03/17 01:58
[2017-08-04] MEDS: DUONEB *Not for PRN Use IH SCH ×4 (03:16→19:50)
[2017-08-04 06:35] LABS: Basophils % (Auto) 0.3 % (0.0-1.8); Hematocrit 40.4 % (30.3-42.9); Hemoglobin 12.8 gm/dl (10.1-14.3); Lymphocytes # (Auto) 1.4 K/mm3 (1.2-5.4); Lymphocytes % (Auto) 9.2 % (13.4-35.0); Mean Corpuscular HGB Conc 32 % (30-34); Mean Corpuscular Hemoglobin 28 pg (28-32); Mean Corpuscular Volume 89 fl (79-97); Monocytes % (Auto) 6.4 % (0.0-7.3); Platelet Count 243 K/mm3 (140-440); Red Blood Count 4.54 M/mm3 (3.65-5.03); Red Cell Distribution Width 15.2 % (13.2-15.2)
[2017-08-04 06:50] LABS: BUN/Creatinine Ratio 27; Blood Urea Nitrogen 16 mg/dL (7-17); Calcium 9.1 mg/dL (8.4-10.2); Hemolysis Index 32
--- NOTE | 2017-08-04 09:18 | Progress Note ---
<PATSY FORD - Last Filed: 08/04/17 12:18> Assessment and Plan Assessment and plan: Patient is a 66 year old woman who presented to ED with complaints of shortness of breath. COPD exacerbation Continue steroids, aggressive nebulizer treatments and empiric antibiotics, continue oxygen supplementation Tool Setter Apprentice Dr Tee consulted Acute respiratory failure Continue supplemental oxygen, currently on 2L via [place], continue to wean as tolerated Hypertension We will resume home antihypertensive medications, Closely monitor blood pressure Tobacco use Nicotine patch Smoking cessation Counseling done. Patient strongly advised to quit. DVT prophylaxis Lovenox History Interval history: Patient was seen and examined. She feels as if her breathing is better today. Labs and nursing notes reviewed. Hospitalist Physical - Constitutional Vitals: Temp Pulse Resp BP Pulse Ox 98.7 F 76 20 138/78 95 08/04/17 08:00 08/04/17 08:45 08/04/17 08:45 08/04/17 08:00 08/04/17 08:45 General appearance: Present: no acute distress, well-nourished - EENT Eyes: Present: PERRL, EOM intact ENT: hearing intact, clear oral mucosa - Neck Neck: Present: supple, normal ROM - Respiratory Respiratory effort: normal Respiratory: bilateral: wheezing - Cardiovascular Rhythm: regular Heart Sounds: Present: S1 & S2 - Extremities Extremities: no ischemia, No edema - Abdominal General gastrointestinal: soft, non-tender, non-distended - Integumentary Integumentary: Present: clear, warm, dry - Psychiatric Psychiatric: appropriate mood/affect, intact judgment & insight, cooperative - Neurologic Neurologic: CNII-XII intact, moves all extremities Results - Labs CBC & Chem 7: 08/04/17 06:11 08/04/17 06:11 Labs: Laboratory Last Values WBC 15.3 K/mm3 (4.5-11.0) H 08/04/17 06:11 RBC 4.54 M/mm3 (3.65-5.03) 08/04/17 06:11 Hgb 12.8 gm/dl (10.1-14.3) 08/04/17 06:11 Hct 40.4 % (30.3-42.9) 08/04/17 06:11 MCV 89 fl (79-97) 08/04/17 06:11 MCH 28 pg (28-32) 08/04/17 06:11 MCHC 32 % (30-34) 08/04/17 06:11 RDW 15.2 % (13.2-15.2) 08/04/17 06:11 Plt Count 243 K/mm3 (140-440) 08/04/17 06:11 Lymph % (Auto) 9.2 % (13.4-35.0) L 08/04/17 06:11 [place] % (Auto) 6.4 % (0.0-7.3) 08/04/17 06:11 Eos % (Auto) 0.0 % (0.0-4.3) 08/04/17 06:11 Baso % (Auto) 0.3 % (0.0-1.8) 08/04/17 06:11 Lymph # 1.4 K/mm3 (1.2-5.4) 08/04/17 06:11 [place] # 1.0 K/mm3 (0.0-0.8) H 08/04/17 06:11 Eos # 0.0 K/mm3 (0.0-0.4) 08/04/17 06:11 Baso # 0.0 K/mm3 (0.0-0.1) 08/04/17 06:11 Add Manual Diff Complete 08/03/17 01:58 Total Counted 100 08/03/17 01:58 Seg Neutrophils % 84.1 % (40.0-70.0) H 08/04/17 06:11 Seg Neuts % (Manual) 67.0 % (40.0-70.0) 08/03/17 01:58 Band Neutrophils % 0 % 08/03/17 01:58 Lymphocytes % (Manual) 31.0 % (13.4-35.0) 08/03/17 01:58 Reactive Lymphs % (Man) 1.0 % 08/03/17 01:58 Monocytes % (Manual) 0 % (0.0-7.3) 08/03/17 01:58 Eosinophils % (Manual) 0 % (0.0-4.3) 08/03/17 01:58 Basophils % (Manual) 1.0 % (0.0-1.8) 08/03/17 01:58 Metamyelocytes % 0 % 08/03/17 01:58 Myelocytes % 0 % 08/03/17 01:58 Promyelocytes % 0 % 08/03/17 01:58 Blast Cells % 0 % 08/03/17 01:58 Nucleated RBC % Not Reportable 08/03/17 01:58 Seg Neutrophils # 12.9 K/mm3 (1.8-7.7) H 08/04/17 06:11 Seg Neutrophils # Man 8.3 K/mm3 (1.8-7.7) H 08/03/17 01:58 Band Neutrophils # 0.0 K/mm3 08/03/17 01:58 Lymphocytes # (Manual) 3.8 K/mm3 (1.2-5.4) 08/03/17 01:58 Abs React Lymphs (Man) 0.1 K/mm3 08/03/17 01:58 Monocytes # (Manual) 0.0 K/mm3 (0.0-0.8) 08/03/17 01:58 Eosinophils # (Manual) 0.0 K/mm3 (0.0-0.4) 08/03/17 01:58 Basophils # (Manual) 0.1 K/mm3 (0.0-0.1) 08/03/17 01:58 Metamyelocytes # 0.0 K/mm3 08/03/17 01:58 Myelocytes # 0.0 K/mm3 08/03/17 01:58 Promyelocytes # 0.0 K/mm3 08/03/17 01:58 Blast Cells # 0.0 K/mm3 08/03/17 01:58 WBC Morphology Not Reportable 08/03/17 01:58 Hypersegmented Neuts Not Reportable 08/03/17 01:58 Hyposegmented Neuts Not Reportable 08/03/17 01:58 Hypogranular Neuts Not Reportable 08/03/17 01:58 Smudge Cells Not Reportable 08/03/17 01:58 Toxic Granulation Not Reportable 08/03/17 01:58 Toxic Vacuolation Not Reportable 08/03/17 01:58 Dohle Bodies Not Reportable 08/03/17 01:58 Pelger-Huet Anomaly Not Reportable 08/03/17 01:58 Brisa Rods Not Reportable 08/03/17 01:58 Platelet Estimate Consistent w auto 08/03/17 01:58 Clumped Platelets Not Reportable 08/03/17 01:58 Plt Clumps, EDTA Not Reportable 08/03/17 01:58 Large Platelets Not Reportable 08/03/17 01:58 Giant Platelets Not Reportable 08/03/17 01:58 Platelet Satelliting Not Reportable 08/03/17 01:58 Plt Morphology Comment Not Reportable 08/03/17 01:58 RBC Morphology Normal 08/03/17 01:58 Dimorphic RBCs Not Reportable 08/03/17 01:58 Polychromasia Not Reportable 08/03/17 01:58 Hypochromasia Not Reportable 08/03/17 01:58 Poikilocytosis Not Reportable 08/03/17 01:58 Anisocytosis Not Reportable 08/03/17 01:58 Microcytosis Not Reportable 08/03/17 01:58 Macrocytosis Not Reportable 08/03/17 01:58 Spherocytes Not Reportable 08/03/17 01:58 Pappenheimer Bodies Not Reportable 08/03/17 01:58 Sickle Cells Not Reportable 08/03/17 01:58 Target Cells Not Reportable 08/03/17 01:58 Tear Drop Cells Not Reportable 08/03/17 01:58 Ovalocytes Not Reportable 08/03/17 01:58 Helmet Cells Not Reportable 08/03/17 01:[address] [place] Bodies Not Reportable 08/03/17 01:58 [place] Rings Not Reportable 08/03/17 01:58 [place] Cells Not Reportable 08/03/17 01:58 Bite Cells Not Reportable 08/03/17 01:58 Crenated Cell Not Reportable 08/03/17 01:58 Elliptocytes Not Reportable 08/03/17 01:58 Acanthocytes (Spur) Not Reportable 08/03/17 01:58 Rouleaux Not Reportable 08/03/17 01:58 Hemoglobin C Crystals Not Reportable 08/03/17 01:58 Schistocytes Not Reportable 08/03/17 01:58 Malaria parasites Not Reportable 08/03/17 01:58 [place] Bodies Not Reportable 08/03/17 01:58 Hem Pathologist Commnt No 08/03/17 01:58 PT 11.7 Sec. (12.2-14.9) L 08/03/17 01:58 INR 0.82 (0.87-1.13) L 08/03/17 01:58 D-Dimer 291.13 ng/mlDDU (0-234) H 08/03/17 01:58 POC ABG pH 7.334 (7.35-7.45) L 08/03/17 03:52 POC ABG pCO2 53.8 (35-45) H 08/03/17 03:52 POC ABG pO2 205 (80-105) H 08/03/17 03:52 POC ABG HCO3 28.6 08/03/17 03:52 POC ABG Total CO2 30 08/03/17 03:52 POC ABG O2 Sat 100 08/03/17 03:52 POC ABG Base Excess 3 08/03/17 03:52 FiO2 60 % 08/03/17 03:52 Sodium 140 mmol/L (137-145) 08/04/17 06:11 Potassium 5.1 mmol/L (3.6-5.0) H D 08/04/17 06:11 Chloride 100.9 mmol/L (98-107) 08/04/17 06:11 Carbon Dioxide 27 mmol/L (22-30) 08/04/17 06:11 Anion Gap 17 mmol/L 08/04/17 06:11 BUN 16 mg/dL (7-17) 08/04/17 06:11 Creatinine 0.6 mg/dL (0.7-1.2) L 08/04/17 06:11 Estimated GFR > 60 ml/min 08/04/17 06:11 BUN/Creatinine Ratio 27 % 08/04/17 06:11 Glucose 115 mg/dL (65-100) H 08/04/17 06:11 Lactic Acid 1.00 mmol/L (0.7-2.0) 08/03/17 01:58 Calcium 9.1 mg/dL (8.4-10.2) 08/04/17 06:11 Magnesium 3.00 mg/dL (1.7-2.3) H 08/03/17 01:58 Total Bilirubin 0.20 mg/dL (0.1-1.2) 08/03/17 01:58 AST 35 units/L (5-40) 08/03/17 01:58 ALT 23 units/L (7-56) 08/03/17 01:58 Alkaline Phosphatase 119 units/L (35-129) 08/03/17 01:58 Total Creatine Kinase 257 units/L (30-135) H 08/03/17 11:59 CK-MB (CK-2) 13.4 ng/mL (0.0-4.0) H 08/03/17 11:59 CK-MB (CK-2) Rel Index 5.2 (0-4) H 08/03/17 11:59 Troponin T 0.067 ng/mL (0.00-0.029) H D 08/03/17 11:59 NT-Pro-B Natriuret Pep 53.52 pg/mL (0-900) 08/03/17 03:42 Total Protein 7.2 g/dL (6.3-8.2) 08/03/17 01:58 Albumin 4.3 g/dL (3.9-5) 08/03/17 01:58 Albumin/Globulin Ratio 1.5 % 08/03/17 01:58 Triglycerides 82 mg/dL (2-149) 08/03/17 01:58 Cholesterol 207 mg/dL (50-199) H 08/03/17 01:58 LDL Cholesterol Direct 116 mg/dL (50-130) 08/03/17 01:58 HDL Cholesterol 81 mg/dL (40-59) H 08/03/17 01:58 Cholesterol/HDL Ratio 2.55 % 08/03/17 01:58 <SHERRY PORETR - Last Filed: 08/04/17 16:47> Assessment and Plan Assessment and plan: I saw and evaluated the patient. I agree with the findings and the plan of care as documented in the physician Cell Tester's~note, with the following corrections and additions.' Hyperkalemia-Kayxalate Taper steroids Leukyctosis likely reactive Hospitalist Physical - Physical exam Narrative exam: VITAL SIGNS: Reviewed. GENERAL: Patient appears chronically ill raspy voice.. Vital signs as documented. HEAD: No signs of head trauma. EYES: Pupils are equal. Extraocular motions intact. EARS: Hearing grossly intact. MOUTH: Oropharynx is normal. NECK: No adenopathy, no JVD. CHEST: Chest with diminished bilateral breath sounds. barell chest. No wheezes , rales, or rhonchi. CARDIAC: Regular rate and rhythm. S1 and S2, without murmurs, gallops, or rubs. VASCULAR: No Edema. Peripheral pulses normal and equal in all extremities. ABDOMEN: Soft, without detectable tenderness. No sign of distention. No rebound or guarding, and no masses palpated. Bowel Sounds normal. MUSCULOSKELETAL: Good range of motion of all major joints. Extremities without clubbing, cyanosis or edema. NEUROLOGIC EXAM: Alert and oriented x 3. No focal sensory or strength deficits. Speech normal. Follows commands. PSYCHIATRIC: Mood normal. SKIN: No rash or lesions. - Constitutional Vitals: Temp Pulse Resp BP Pulse Ox 97.6 F 94 H 20 136/77 100 08/04/17 12:16 08/04/17 14:18 08/04/17 13:54 08/04/17 14:18 08/04/17 12:16 Results - Labs CBC & Chem 7: 08/04/17 06:11 08/04/17 06:11 Labs: Laboratory Last Values WBC 15.3 K/mm3 (4.5-11.0) H 08/04/17 06:11 RBC 4.54 M/mm3 (3.65-5.03) 08/04/17 06:11 Hgb 12.8 gm/dl (10.1-14.3) 08/04/17 06:11 Hct 40.4 % (30.3-42.9) 08/04/17 06:11 MCV 89 fl (79-97) 08/04/17 06:11 MCH 28 pg (28-32) 08/04/17 06:11 MCHC 32 % (30-34) 08/04/17 06:11 RDW 15.2 % (13.2-15.2) 08/04/17 06:11 Plt Count 243 K/mm3 (140-440) 08/04/17 06:11 Lymph % (Auto) 9.2 % (13.4-35.0) L 08/04/17 06:11 [place] % (Auto) 6.4 % (0.0-7.3) 08/04/17 06:11 Eos % (Auto) 0.0 % (0.0-4.3) 08/04/17 06:11 Baso % (Auto) 0.3 % (0.0-1.8) 08/04/17 06:11 Lymph # 1.4 K/mm3 (1.2-5.4) 08/04/17 06:11 [place] # 1.0 K/mm3 (0.0-0.8) H 08/04/17 06:11 Eos # 0.0 K/mm3 (0.0-0.4) 08/04/17 06:11 Baso # 0.0 K/mm3 (0.0-0.1) 08/04/17 06:11 Add Manual Diff Complete 08/03/17 01:58 Total Counted 100 08/03/17 01:58 Seg Neutrophils % 84.1 % (40.0-70.0) H 08/04/17 06:11 Seg Neuts % (Manual) 67.0 % (40.0-70.0) 08/03/17 01:58 Band Neutrophils % 0 % 08/03/17 01:58 Lymphocytes % (Manual) 31.0 % (13.4-35.0) 08/03/17 01:58 Reactive Lymphs % (Man) 1.0 % 08/03/17 01:58 Monocytes % (Manual) 0 % (0.0-7.3) 08/03/17 01:58 Eosinophils % (Manual) 0 % (0.0-4.3) 08/03/17 01:58 Basophils % (Manual) 1.0 % (0.0-1.8) 08/03/17 01:58 Metamyelocytes % 0 % 08/03/17 01:58 Myelocytes % 0 % 08/03/17 01:58 Promyelocytes % 0 % 08/03/17 01:58 Blast Cells % 0 % 08/03/17 01:58 Nucleated RBC % Not Reportable 08/03/17 01:58 Seg Neutrophils # 12.9 K/mm3 (1.8-7.7) H 08/04/17 06:11 Seg Neutrophils # Man 8.3 K/mm3 (1.8-7.7) H 08/03/17 01:58 Band Neutrophils # 0.0 K/mm3 08/03/17 01:58 Lymphocytes # (Manual) 3.8 K/mm3 (1.2-5.4) 08/03/17 01:58 Abs React Lymphs (Man) 0.1 K/mm3 08/03/17 01:58 Monocytes # (Manual) 0.0 K/mm3 (0.0-0.8) 08/03/17 01:58 Eosinophils # (Manual) 0.0 K/mm3 (0.0-0.4) 08/03/17 01:58 Basophils # (Manual) 0.1 K/mm3 (0.0-0.1) 08/03/17 01:58 Metamyelocytes # 0.0 K/mm3 08/03/17 01:58 Myelocytes # 0.0 K/mm3 08/03/17 01:58 Promyelocytes # 0.0 K/mm3 08/03/17 01:58 Blast Cells # 0.0 K/mm3 08/03/17 01:58 WBC Morphology Not Reportable 08/03/17 01:58 Hypersegmented Neuts Not Reportable 08/03/17 01:58 Hyposegmented Neuts Not Reportable 08/03/17 01:58 Hypogranular Neuts Not Reportable 08/03/17 01:58 Smudge Cells Not Reportable 08/03/17 01:58 Toxic Granulation Not Reportable 08/03/17 01:58 Toxic Vacuolation Not Reportable 08/03/17 01:58 Dohle Bodies Not Reportable 08/03/17 01:58 Pelger-Huet Anomaly Not Reportable 08/03/17 01:58 Brisa Rods Not Reportable 08/03/17 01:58 Platelet Estimate Consistent w auto 08/03/17 01:58 Clumped Platelets Not Reportable 08/03/17 01:58 Plt Clumps, EDTA Not Reportable 08/03/17 01:58 Large Platelets Not Reportable 08/03/17 01:58 Giant Platelets Not Reportable 08/03/17 01:58 Platelet Satelliting Not Reportable 08/03/17 01:58 Plt Morphology Comment Not Reportable 08/03/17 01:58 RBC Morphology Normal 08/03/17 01:58 Dimorphic RBCs Not Reportable 08/03/17 01:58 Polychromasia Not Reportable 08/03/17 01:58 Hypochromasia Not Reportable 08/03/17 01:58 Poikilocytosis Not Reportable 08/03/17 01:58 Anisocytosis Not Reportable 08/03/17 01:58 Microcytosis Not Reportable 08/03/17 01:58 Macrocytosis Not Reportable 08/03/17 01:58 Spherocytes Not Reportable 08/03/17 01:58 Pappenheimer Bodies Not Reportable 08/03/17 01:58 Sickle Cells Not Reportable 08/03/17 01:58 Target Cells Not Reportable 08/03/17 01:58 Tear Drop Cells Not Reportable 08/03/17 01:58 Ovalocytes Not Reportable 08/03/17 01:58 Helmet Cells Not Reportable 08/03/17 01:[address] [place] Bodies Not Reportable 08/03/17 01:58 [place] Rings Not Reportable 08/03/17 01:58 [place] Cells Not Reportable 08/03/17 01:58 Bite Cells Not Reportable 08/03/17 01:58 Crenated Cell Not Reportable 08/03/17 01:58 Elliptocytes Not Reportable 08/03/17 01:58 Acanthocytes (Spur) Not Reportable 08/03/17 01:58 Rouleaux Not Reportable 08/03/17 01:58 Hemoglobin C Crystals Not Reportable 08/03/17 01:58 Schistocytes Not Reportable 08/03/17 01:58 Malaria parasites Not Reportable 08/03/17 01:58 Amadou Bodies Not Reportable 08/03/17 01:58 Hem Pathologist Commnt No 08/03/17 01:58 PT 11.7 Sec. (12.2-14.9) L 08/03/17 01:58 INR 0.82 (0.87-1.13) L 08/03/17 01:58 D-Dimer 291.13 ng/mlDDU (0-234) H 08/03/17 01:58 POC ABG pH 7.334 (7.35-7.45) L 08/03/17 03:52 POC ABG pCO2 53.8 (35-45) H 08/03/17 03:52 POC ABG pO2 205 (80-105) H 08/03/17 03:52 POC ABG HCO3 28.6 08/03/17 03:52 POC ABG Total CO2 30 08/03/17 03:52 POC ABG O2 Sat 100 08/03/17 03:52 POC ABG Base Excess 3 08/03/17 03:52 FiO2 60 % 08/03/17 03:52 Sodium 140 mmol/L (137-145) 08/04/17 06:11 Potassium 5.1 mmol/L (3.6-5.0) H D 08/04/17 06:11 Chloride 100.9 mmol/L (98-107) 08/04/17 06:11 Carbon Dioxide 27 mmol/L (22-30) 08/04/17 06:11 Anion Gap 17 mmol/L 08/04/17 06:11 BUN 16 mg/dL (7-17) 08/04/17 06:11 Creatinine 0.6 mg/dL (0.7-1.2) L 08/04/17 06:11 Estimated GFR > 60 ml/min 08/04/17 06:11 BUN/Creatinine Ratio 27 % 08/04/17 06:11 Glucose 115 mg/dL (65-100) H 08/04/17 06:11 Lactic Acid 1.00 mmol/L (0.7-2.0) 08/03/17 01:58 Calcium 9.1 mg/dL (8.4-10.2) 08/04/17 06:11 Magnesium 3.00 mg/dL (1.7-2.3) H 08/03/17 01:58 Total Bilirubin 0.20 mg/dL (0.1-1.2) 08/03/17 01:58 AST 35 units/L (5-40) 08/03/17 01:58 ALT 23 units/L (7-56) 08/03/17 01:58 Alkaline Phosphatase 119 units/L (35-129) 08/03/17 01:58 Total Creatine Kinase 257 units/L (30-135) H 08/03/17 11:59 CK-MB (CK-2) 13.4 ng/mL (0.0-4.0) H 08/03/17 11:59 CK-MB (CK-2) Rel Index 5.2 (0-4) H 08/03/17 11:59 Troponin T 0.067 ng/mL (0.00-0.029) H D 08/03/17 11:59 NT-Pro-B Natriuret Pep 53.52 pg/mL (0-900) 08/03/17 03:42 Total Protein 7.2 g/dL (6.3-8.2) 08/03/17 01:58 Albumin 4.3 g/dL (3.9-5) 08/03/17 01:58 Albumin/Globulin Ratio 1.5 % 08/03/17 01:58 Triglycerides 82 mg/dL (2-149) 08/03/17 01:58 Cholesterol 207 mg/dL (50-199) H 08/03/17 01:58 LDL Cholesterol Direct 116 mg/dL (50-130) 08/03/17 01:58 HDL Cholesterol 81 mg/dL (40-59) H 08/03/17 01:58 Cholesterol/HDL Ratio 2.55 % 08/03/17 01:58
[2017-08-04] MEDS ORDERED: KIONEX PO NR (09:30)
[2017-08-04] MEDS ORDERED: CITALOPRAM HYDROBROMIDE 40 MG PO SCH (10:15)
[2017-08-04] MEDS: SODIUM CHLORIDE FLUSH SYRINGE 10 ML IV SCH ×2 (10:20→21:20)
[2017-08-04] MEDS: LOVENOX SUB-Q SCH (10:20)
[2017-08-04] MEDS ORDERED: SPIRIVA IH PRN (11:53)
--- NOTE | 2017-08-04 14:00 | Consultation ---
History of Present Illness Consult date: 08/04/17 Requesting physician: LUPE SMITH Reason for consult: COPD History of present illness: 66 y/o female with known COPD and chronic respiratory failure, followed by Dr. Tee as an outpatient admitted with COPD exacerbation. Patient still smoking. Feels better. Currently on steroids and nebs. Wants puffers as those work better for her. Past History Past Medical History: COPD, hypertension, hyperlipidemia Past Surgical History: No surgical history Social history: no significant social history Family history: no significant family history Medications and Allergies Allergies Allergy/AdvReac Type Severity Reaction Status Date / Time No Known Allergies Allergy Unverified 12/25/16 05:14 Home Medications Medication Instructions Recorded Confirmed Last Taken Type Amlodipine Besylate 5 mg PO DAILY 12/25/16 08/03/17 12/24/16 History Citalopram Hydrobromide 40 mg PO DAILY 12/25/16 08/03/17 12/24/16 History [Citalopram HBr] Lovastatin (Nf) [Mevacor (Nf)] 20 mg PO QHS 12/25/16 08/03/17 12/24/16 History Ipratropium/Albuterol Sulfate 2 puff IH QID #1 mist.inhal 12/27/16 08/03/17 Unknown Rx [Combivent Respimat] Ipratropium/Albuterol Sulfate 1 ampul IH Q6HR PRN #120 ampul.neb 12/27/16 Unknown Rx [DUONEB *Not for PRN Use*] Mometasone/Formoterol [Dulera 200 2 puff IH BID #1 hfa.aer.ad 12/27/16 08/03/17 Unknown Rx Mcg/5 Mcg Inhaler] Nicotine [Habitrol] 7 mg TD QDAY #30 patch 12/27/16 08/03/17 Unknown Rx Tiotropium [Spiriva] 2 puff IH QDAY PRN #30 cap 12/27/16 08/03/17 Unknown Rx predniSONE [Deltasone] 10 mg PO .TAPER #48 tab 12/27/16 08/03/17 Unknown Rx Active Meds: Active Medications Acetaminophen (Tylenol) 650 mg PO Q4H PRN PRN Reason: Pain MILD(1-3)/Fever >100.5/UMANA Albuterol/Ipratropium (Duoneb *Not For Prn Use*) 1 ampul IH Q6HRT [facility] Last Admin: 08/04/17 13:44 Dose: 1 ampul Amlodipine Besylate (Norvasc) 5 mg PO DAILY [facility] Citalopram Hydrobromide (Celexa) 40 mg PO QDAY [facility] Enoxaparin Sodium (Lovenox) 40 mg SUB-Q QDAY [facility] Last Admin: 08/04/17 10:20 Dose: 40 mg Methylprednisolone Sodium Succinate (Solu-Medrol) 80 mg IV Q6H [facility] Nicotine (Habitrol) 7 mg TD QDAY [facility] Ondansetron HCl (Zofran) 4 mg IV Q8H PRN PRN Reason: Nausea And Vomiting Pravastatin Sodium (Pravachol) 20 mg PO QHS [facility] Sodium Chloride (Sodium Chloride Flush Syringe 10 Ml) 10 ml IV BID [facility] Last Admin: 08/04/17 10:20 Dose: 10 ml Sodium Chloride (Sodium Chloride Flush Syringe 10 Ml) 10 ml IV PRN PRN PRN Reason: LINE FLUSH Review of Systems All systems: negative Physical Examination Vital signs: Vital Signs Pulse Resp BP Pulse Ox 102 H 28 H 146/67 98 08/03/17 01:18 08/03/17 01:18 08/03/17 01:18 08/03/17 01:18 General appearance: no acute distress, alert Eyes: non-icteric ENT: oropharynx moist Neck: supple, no lymphadenopathy Effort: normal Ascultation: Bilateral: wheezes (but improved compared to notes from prior to my exam) Percussion: Bilateral: not dull Tactile fremitus: Bilateral: normal Cardiovascular: regular rate and rhythm Gastrointestinal: normoactive bowel sounds, soft, non-tender Integumentary: normal Extremities: no cyanosis, no edema, pink and warm, pulses normal normal mental status, non-focal exam mood appropriate Results - Laboratory Findings CBC and BMP: 08/04/17 06:11 08/04/17 06:11 ABG POC ABG pH 7.334 (7.35-7.45) L 08/03/17 03:52 POC ABG pCO2 53.8 (35-45) H 08/03/17 03:52 POC ABG pO2 205 (80-105) H 08/03/17 03:52 POC ABG HCO3 28.6 08/03/17 03:52 POC ABG Total CO2 30 08/03/17 03:52 POC ABG O2 Sat 100 08/03/17 03:52 PT/INR, D-dimer PT 11.7 Sec. (12.2-14.9) L 08/03/17 01:58 INR 0.82 (0.87-1.13) L 08/03/17 01:58 D-Dimer 291.13 ng/mlDDU (0-234) H 08/03/17 01:58 Abnormal lab findings: Abnormal Labs 08/03/17 08/03/17 08/03/17 01:58 01:58 01:58 WBC 12.4 H Hgb 14.4 H Hct 43.3 H Lymph % (Auto) [place] # Seg Neutrophils % Seg Neutrophils # Seg Neutrophils # Man 8.3 H PT 11.7 L INR 0.82 L D-Dimer 291.13 H POC ABG pH POC ABG pCO2 POC ABG pO2 Potassium BUN 19 H Creatinine Glucose 158 H Magnesium 3.00 H Total Creatine Kinase CK-MB (CK-2) CK-MB (CK-2) Rel Index Troponin T Cholesterol HDL Cholesterol 08/03/17 08/03/17 08/03/17 01:58 02:18 03:52 WBC Hgb Hct Lymph % (Auto) [place] # Seg Neutrophils % Seg Neutrophils # Seg Neutrophils # Man PT INR D-Dimer POC ABG pH 7.189 L 7.334 L POC ABG pCO2 77.9 H 53.8 H POC ABG pO2 67 L 205 H Potassium BUN Creatinine Glucose Magnesium Total Creatine Kinase CK-MB (CK-2) CK-MB (CK-2) Rel Index Troponin T 0.032 H Cholesterol 207 H HDL Cholesterol 81 H 08/03/17 08/03/17 08/04/17 05:47 11:59 06:11 WBC 15.3 H Hgb Hct Lymph % (Auto) 9.2 L [place] # 1.0 H Seg Neutrophils % 84.1 H Seg Neutrophils # 12.9 H Seg Neutrophils # Man PT INR D-Dimer POC ABG pH POC ABG pCO2 POC ABG pO2 Potassium BUN Creatinine Glucose Magnesium Total Creatine Kinase 208 H 257 H CK-MB (CK-2) 8.4 H 13.4 H CK-MB (CK-2) Rel Index 5.2 H Troponin T 0.150 H* D 0.067 H D Cholesterol HDL Cholesterol 08/04/17 06:11 WBC Hgb Hct Lymph % (Auto) [place] # Seg Neutrophils % Seg Neutrophils # Seg Neutrophils # Man PT INR D-Dimer POC ABG pH POC ABG pCO2 POC ABG pO2 Potassium 5.1 H D BUN Creatinine 0.6 L Glucose 115 H Magnesium Total Creatine Kinase CK-MB (CK-2) CK-MB (CK-2) Rel Index Troponin T Cholesterol HDL Cholesterol - Diagnostic Findings Chest x-ray: image reviewed (COPD but no acute disease) Assessment and Plan 66 y/o female with acute exacerbation of COPD. 1. Will change nebs to PUFFERS 2. Change steroids to Prednisone 60 starting tomorrow. Will need prolonged taper. 60x4, 40x4, 20x4, 10x4 3. spoke with nursing and asked them to ambulate in halls and assess oxygen need 4. hOpeful discharge tomorrow 5. Smoking cessation
[2017-08-04] MEDS: NORVASC PO SCH (14:18)
[2017-08-04] MEDS: HABITROL TD SCH (15:15)
[2017-08-04] MEDS ORDERED: LOVASTATIN 20 MG PO SCH (22:00)
[2017-08-04] MEDS ORDERED: PRAVACHOL PO SCH (22:00)
[2017-08-05] MEDS: DUONEB *Not for PRN Use IH SCH ×3 (01:31→15:15)
[2017-08-05] MEDS: NORVASC PO SCH (10:46)
[2017-08-05] MEDS: LOVENOX SUB-Q SCH (10:46)
[2017-08-05] MEDS: HABITROL TD SCH (10:47)
[2017-08-05] MEDS: SODIUM CHLORIDE FLUSH SYRINGE 10 ML IV SCH (10:47)
[2017-08-05] MEDS ORDERED: celeXA PO SCH (12:00)
[2017-08-05 12:20] LABS: BUN/Creatinine Ratio 30; Blood Urea Nitrogen 18 mg/dL (7-17); Calcium 9.3 mg/dL (8.4-10.2); Hemolysis Index 72
--- NOTE | 2017-08-05 13:05 | Discharge Summary ---
<PATSY FORD - Last Filed: 08/05/17 13:00> Providers - Providers Date of Admission: 08/03/17 05:36 Date of discharge: 08/05/17 Attending physician: SHERRY PORTER MD 08/04/17 10:21 Consult to Physician [CONS] Routine Comment: Consulting Provider: ISRAEL TEE Physician Instructions: Reason For Exam: copd exacerbation Primary care physician: CORI GALVAN Hospitalization Condition: Stable Hospital course: Patient is a 66 year old woman with COPD who presented to ED with complaints of shortness of breath. Patient was found to be in acute respiratory failure due to COPD exacerbation. Pulmonology was consulted and patient was treated with IV steroids, nebulizers and O2 after which she improved. Her troponin and CKMB were elevated on admission but are chronically elevated compared to her prior visit. Patient was clinically stable for discharge home with a steroid taper and no home O2 requirements at this time. Patient will resume her home medications and follow up with her primary scientist propagator Dr Tee within 1 week of discharge. Patient counseled on smoking cessation. Discharge diagnoses COPD exacerbation Acute respiratory failure Hypertension Tobacco use DVT prophylaxis Disposition: DC- TO HOME OR SELFCARE Time spent for discharge: 32 minutes Core Measure Documentation - Palliative Care Palliative Care/ Comfort Measures: Not Applicable - Core Measures Any of the following diagnoses?: none Exam - Constitutional Vitals: Temp Pulse Resp BP Pulse Ox 98.4 F 97 H 18 154/93 99 08/05/17 08:40 08/05/17 10:46 08/05/17 08:40 08/05/17 10:46 08/05/17 08:40 General appearance: Present: no acute distress, well-nourished - EENT Eyes: Present: PERRL ENT: hearing intact, clear oral mucosa - Neck Neck: Present: supple, normal ROM - Respiratory Respiratory effort: normal Respiratory: bilateral: CTA - Cardiovascular Heart Sounds: Present: S1 & S2. Absent: rub, click - Extremities Extremities: pulses symmetrical, No edema Peripheral Pulses: within normal limits - Abdominal General gastrointestinal: Present: soft, non-tender, non-distended, normal bowel sounds - Integumentary Integumentary: Present: clear, warm, dry - Musculoskeletal Musculoskeletal: gait normal, strength equal bilaterally - Psychiatric Psychiatric: appropriate mood/affect, intact judgment & insight - Neurologic Neurologic: CNII-XII intact, moves all extremities Plan Diet: low fat, low cholesterol, low salt Special Instructions: smoking cessation Follow up with: CORI GALVAN MD [Primary Care Provider] - 3-5 Days ISRAEL TEE MD [Staff Physician] - 7 Days Prescriptions: Nicotine [Habitrol] 7 mg TD QDAY #30 patch predniSONE [Deltasone] 10 mg PO QDAY #52 tab <SHERRY PORTER - Last Filed: 08/05/17 16:08> Providers - Providers Date of Admission: 08/03/17 05:36 Attending physician: SHERRY PORTER MD 08/04/17 10:21 Consult to Physician [CONS] Routine Comment: Consulting Provider: ISRAEL TEE Physician Instructions: Reason For Exam: copd exacerbation Primary care physician: CORI GALVAN Hospitalization Hospital course: I saw and evaluated the patient. I agree with the findings and the plan of care as documented in the PA's~note, with the following corrections and additions. Chronic elevated Cardiac enzymes Hypoxic Respiratory failure- Needs home oxygen Extensive Counselling about tobacco use 15 mins spent on counselling. Exam - Constitutional Vitals: Temp Pulse Resp BP Pulse Ox 98.5 F 90 18 150/80 98 08/05/17 12:42 08/05/17 15:28 08/05/17 15:28 08/05/17 12:42 08/05/17 12:42
--- NOTE | 2017-08-05 14:13 | Progress Note ---
Assessment and Plan 66 y/o female with acute exacerbation of COPD. Same recs as yesterday. Follow up with Randal in 10-14 days. 1. Will change nebs to PUFFERS 2. Change steroids to Prednisone 60 starting tomorrow. Will need prolonged taper. 60x4, 40x4, 20x4, 10x4 3. spoke with nursing and asked them to ambulate in halls and assess oxygen need 4. hOpeful discharge tomorrow 5. Smoking cessation Subjective Date of service: 08/05/17 Interval history: Discharge order on chart. Objective Vital Signs - 12hr 08/05/17 08/05/17 08/05/17 05:10 08:40 09:00 Temperature 98.4 F Pulse Rate 87 97 H 85 Respiratory 20 18 Rate Blood Pressure 139/69 154/93 O2 Sat by Pulse 95 99 Oximetry 08/05/17 08/05/17 10:46 12:42 Temperature 98.5 F Pulse Rate 97 H 87 Respiratory 18 Rate Blood Pressure 154/93 150/80 O2 Sat by Pulse 98 Oximetry Constitutional: no acute distress, alert Eyes: non-icteric ENT: oropharynx moist Neck: supple, no lymphadenopathy Effort: normal Ascultation: Bilateral: wheezes (but improved compared to notes from prior to my exam) Percussion: Bilateral: not dull Tactile fremitus: Bilateral: normal Cardiovascular: regular rate and rhythm Gastrointestinal: normoactive bowel sounds, soft, non-tender Integumentary: normal Extremities: no cyanosis, no edema, pink and warm, pulses normal Neurologic: normal mental status, non-focal exam Psychiatric: mood appropriate CBC and BMP: 08/04/17 06:11 08/05/17 11:44 ABG, PT/INR, D-dimer: ABG POC ABG pH 7.334 (7.35-7.45) L 08/03/17 03:52 POC ABG pCO2 53.8 (35-45) H 08/03/17 03:52 POC ABG pO2 205 (80-105) H 08/03/17 03:52 POC ABG HCO3 28.6 08/03/17 03:52 POC ABG Total CO2 30 08/03/17 03:52 POC ABG O2 Sat 100 08/03/17 03:52 PT/INR, D-dimer PT 11.7 Sec. (12.2-14.9) L 08/03/17 01:58 INR 0.82 (0.87-1.13) L 08/03/17 01:58 D-Dimer 291.13 ng/mlDDU (0-234) H 08/03/17 01:58 Abnormal lab findings: Abnormal Labs 08/03/17 08/03/17 08/03/17 01:58 01:58 01:58 WBC 12.4 H Hgb 14.4 H Hct 43.3 H Lymph % (Auto) [place] # Seg Neutrophils % Seg Neutrophils # Seg Neutrophils # Man 8.3 H PT 11.7 L INR 0.82 L D-Dimer 291.13 H POC ABG pH POC ABG pCO2 POC ABG pO2 Potassium Chloride BUN 19 H Creatinine Glucose 158 H Magnesium 3.00 H Total Creatine Kinase CK-MB (CK-2) CK-MB (CK-2) Rel Index Troponin T Cholesterol HDL Cholesterol 08/03/17 08/03/17 08/03/17 01:58 02:18 03:52 WBC Hgb Hct Lymph % (Auto) [place] # Seg Neutrophils % Seg Neutrophils # Seg Neutrophils # Man PT INR D-Dimer POC ABG pH 7.189 L 7.334 L POC ABG pCO2 77.9 H 53.8 H POC ABG pO2 67 L 205 H Potassium Chloride BUN Creatinine Glucose Magnesium Total Creatine Kinase CK-MB (CK-2) CK-MB (CK-2) Rel Index Troponin T 0.032 H Cholesterol 207 H HDL Cholesterol 81 H 08/03/17 08/03/17 08/04/17 05:47 11:59 06:11 WBC 15.3 H Hgb Hct Lymph % (Auto) 9.2 L [place] # 1.0 H Seg Neutrophils % 84.1 H Seg Neutrophils # 12.9 H Seg Neutrophils # Man PT INR D-Dimer POC ABG pH POC ABG pCO2 POC ABG pO2 Potassium Chloride BUN Creatinine Glucose Magnesium Total Creatine Kinase 208 H 257 H CK-MB (CK-2) 8.4 H 13.4 H CK-MB (CK-2) Rel Index 5.2 H Troponin T 0.150 H* D 0.067 H D Cholesterol HDL Cholesterol 08/04/17 08/05/17 06:11 11:44 WBC Hgb Hct Lymph % (Auto) [place] # Seg Neutrophils % Seg Neutrophils # Seg Neutrophils # Man PT INR D-Dimer POC ABG pH POC ABG pCO2 POC ABG pO2 Potassium 5.1 H D Chloride 97.2 L BUN 18 H Creatinine 0.6 L 0.6 L Glucose 115 H Magnesium Total Creatine Kinase CK-MB (CK-2) CK-MB (CK-2) Rel Index Troponin T Cholesterol HDL Cholesterol
[2017-08-05 18:14] VITALS: BP 159/79
[2017-08-06] MEDS ORDERED: DELTASONE PO SCH (10:00)
== END 2017-08-05 20:04 | disposition home or self-care (01) | DRG 189 ==
LOC: ED 01:18 → 4A 05:36
PROVIDERS: ADMIT Internal Medicine; ATTEND Internal Medicine
PROC: 4A033R1 Measurement of Arterial Saturation, Peripheral, Percutaneous Approach (ICD-10-PCS; principal; 2017-08-03)
PROC: 5A09357 Assistance with Respiratory Ventilation, Less than 24 Consecutive Hours, Continuous Positive Airway Pressure (ICD-10-PCS; 2017-08-03)
DX: J96.20 Acute and chronic respiratory failure, unspecified whether with hypoxia or hypercapnia (principal); J44.1 Chronic obstructive pulmonary disease with (acute) exacerbation; I10 Essential (primary) hypertension; E87.5 Hyperkalemia; E78.5 Hyperlipidemia, unspecified
CPT/HCPCS: 36415; 71045; 71275; 80048; 80053; 80061; 82140; 82550; 82553; 82803; 83735; 83880; 84484; 85007; 85025; 85379; 85610; 93005; 93010; 94640; 94644; 96374; 99406; J1650; J2060; J2405; J2930; J7030; J7050; Q9967

== ENCOUNTER 2020-12-25 08:41 | Emergency (ER) | payer OTHER, MEDICARE | END 2020-12-25 12:10 | LOC: ED 08:41 | DX: Z53.21 Procedure and treatment not carried out due to patient leaving prior to being seen by health care provider (principal) ==

== ENCOUNTER 2021-05-19 14:59 | Emergency (ER) | payer OTHER, MEDICARE ==
[2021-05-19 15:04] VITALS: BP 158/80
== END 2021-05-19 19:35 | disposition left against medical advice (07) ==
LOC: ED 14:59
DX: R05.9 Cough, unspecified (principal); Z53.21 Procedure and treatment not carried out due to patient leaving prior to being seen by health care provider

== ENCOUNTER 2021-05-19 15:08 | Emergency (ER) | payer OTHER, MEDICARE | END 2021-05-20 05:55 | disposition left against medical advice (07) | LOC: ED 15:08 | DX: R05.9 Cough, unspecified (principal); Z53.21 Procedure and treatment not carried out due to patient leaving prior to being seen by health care provider ==

== ENCOUNTER 2021-10-14 16:59 | Emergency (ER) | payer OTHER, MEDICARE ==
[2021-10-14 17:02] VITALS: BP 170/81
== END 2021-10-14 18:29 | disposition left against medical advice (07) ==
LOC: ED 16:59
DX: R06.02 Shortness of breath (principal); Z53.21 Procedure and treatment not carried out due to patient leaving prior to being seen by health care provider